=== PATIENT | male | born 1960 | race Caucasian/White ===

== ENCOUNTER 2017-01-20 02:40 | Emergency (ER) | payer BC ==
[2017-01-20] MEDS ORDERED: Sodium Chloride 0.9% 1,000 ML IV SCH (03:00)
--- NOTE | 2017-01-20 07:08 | ER ---
DATE SEEN: 01/20/2017 TIME SEEN: 3:00 a.m. REASON FOR VISIT: Syncope. HISTORY OF PRESENT ILLNESS: This is a 56-year-old izaguirre who was brought in by the , who woke up to use the bathroom, felt dizzy, and passed out. He hit his head. This has not happened before. He complains of mild chest pain, but otherwise feels fine and sore on the left side of the head, where he hit it. He was sweaty upon arrival of the EMS. No seizure reported. PAST MEDICAL HISTORY: Hypertension and hyperlipidemia. ALLERGIES: None. SOCIAL HISTORY: He had been drinking some tonight. PHYSICAL EXAMINATION: GENERAL: Nontoxic, afebrile, and normotensive. HEENT: Head: Normal size. There is tenderness on the left jain. Eyes: Pupils are equal and reactive to light. NECK: Soft. No JVD or carotid bruits. CHEST: Clear. CARDIOVASCULAR: Normal. EXTREMITIES: No edema. MENTAL STATUS: Alert. LABORATORY DATA: Normal labs including troponin. EKG: Normal sinus rhythm. CT of the head negative. IMPRESSION: Vasovagal syncope. PLAN: 1 L of normal saline. Fluids, rest. Follow up next week [email or web address] /[id number] QING/DARCY
--- NOTE | 2017-01-21 11:45 | CR ---
INDICATION: Dizzy. CHEST: PA and lateral views of the chest 01/20/2017. No comparisons. The aorta is calcified in the arch area. The heart is normal in size and shape. Moderate hypertrophic degenerative changes are noted in the lower thoracic spine. A mild dextroconvex scoliosis of the upper middle thoracic spine is noted. Overlying EKG leads are noted. Overlying snap is noted. An active infiltrate or effusion was not identified. A mild degree of lateral pleural thickening is noted, which likely represents fibrosis. IMPRESSION: No acute process. MTDD
== END 2017-01-20 04:30 | disposition home or self-care (01) ==
LOC: FB.ED 02:40
DX: R55 Syncope and collapse (principal)
CPT/HCPCS: 36415; 70450; 71020; 80048; 84484; 85025; 93005; 96360; 99285; J7040

== ENCOUNTER 2017-05-31 18:51 | Emergency (ER) | payer BC ==
[2017-05-31] MEDS ORDERED: hydrOXYzine HCl 50 MG/ML SDV IM ONE (19:40)
[2017-05-31] MEDS ORDERED: Ketorolac 60 MG/2 ML SDV IM ONE (19:40)
--- NOTE | 2017-05-31 19:42 | EDM.PDOC ---
ED HPI GENERAL MEDICAL PROBLEM - General Chief Complaint: Neck Problem Stated Complaint: HEADACHE Time Seen by Provider: 05/31/17 19:14 Source of Information: Reports: Patient, Family (brother) History Limitations: Reports: No Limitations - History of Present Illness INITIAL COMMENTS - FREE TEXT/NARRATIVE: 56 y.o.w.m came to the ed wih his brother due to sudden onset of bilateral post neck pain as he got up this morning. Pt had similar symptoms 6 years ago, when the symptoms spontaneously subsided. No F/V/N/V or any other acute medical issues. BP 136/95 RR 18 Temp 36.7 Pulse ox 99% RR 18 Onset Date: 05/31/17 Onset Time: 04:00 Duration: Hour(s): Location: Reports: Face, Neck Quality: Reports: Ache, Burning, Dull Severity: Moderate Improves with: Reports: Cold Therapy, Rest Worsens with: Reports: Movement Context: Reports: Other (came on spontaneously) Posterior neck & headache Pain Score (Numeric/FACES): 9 Frontal sinuses over eyes & nose Pain Score (Numeric/FACES): 10 - Related Data Allergies Allergy/AdvReac Type Severity Reaction Status Date / Time No Known Allergies Allergy Verified 05/31/17 19:19 Home Meds: Home Meds Pantoprazole [ProTONIX Granules] 40 mg PO DAILY 01/20/17 [History] amLODIPine Besylate/Benazepril [Amlodipine-Benazepril 5-10 MG] 1 tab PO DAILY [History] atorvaSTATin [Lipitor] 10 mg PO DAILY 01/20/17 [History] Acetaminophen/HYDROcodone [[place] 167.5-5 MG] 0.5 tab PO Q4H PRN #12 tablet 05/31 [Rx] Amoxicillin/Potassium Clav [Augmentin 875-125 Tablet] 1 each PO BID #20 tablet 05/31/17 [Rx] Amoxicillin/Potassium Clav [Augmentin 875-125 Tablet] 1 each PO BID #20 tablet 05/31/17 [Rx] Aspirin [Adult Low Dose Aspirin EC] 81 mg PO DAILY 05/31/17 [History] predniSONE 40 mg DAILY 05/31/17 [History] metroNIDAZOLE [Metronidazole] 500 mg TID 06/01/17 [History] Past Medical History HEENT History: Reports: Sinusitis Cardiovascular History: Reports: High Cholesterol, Hypertension Gastrointestinal History: Reports: GERD Musculoskeletal History: Reports: Arthritis, Neck Pain, Chronic, Other (See Below) Other Musculoskeletal History: Arthritis at the back. Neurological History: Reports: Migraines - Infectious Disease History Infectious Disease History: Reports: Chicken Pox - Past Surgical History HEENT Surgical History: Reports: Adenoidectomy, Tonsillectomy Cardiovascular Surgical History: Reports: None GI Surgical History: Reports: Colonoscopy, EGD Social & Family History - Family History Family Medical History: Noncontributory - Tobacco Use Smoking Status *Q: Former Smoker Years of Tobacco use: 2 Used Tobacco, but Quit: Yes Month/Year Tobacco Last Used: 1986 Second Hand Smoke Exposure: No - Caffeine Use Caffeine Use: Reports: None Other Caffeine Use: gatorade - Recreational Drug Use Recreational Drug Use: No ED ROS GENERAL - Review of Systems Review Of Systems: See Below Constitutional: Reports: No Symptoms HEENT: Reports: Sinus Problem Respiratory: Reports: No Symptoms Cardiovascular: Reports: No Symptoms Endocrine: Reports: No Symptoms GI/Abdominal: Reports: No Symptoms : Reports: No Symptoms Musculoskeletal: Reports: No Symptoms Skin: Reports: No Symptoms Neurological: Reports: No Symptoms Psychiatric: Reports: No Symptoms Hematologic/Lymphatic: Reports: No Symptoms Immunologic: Reports: No Symptoms ED EXAM, UPPER BACK/NECK PAIN - Physical Exam Exam: See Below Exam Limited By: No Limitations General Appearance: Alert, WD/WN, Mild Distress Eye Exam: Bilateral Eye: Normal Inspection Ears Exam: Normal External Exam, Normal Canal Nose Exam: Normal Inspection, Normal Mucousa, No Blood Throat/Mouth Exam: Normal Inspection, Normal Lips, Normal Oropharynx, Normal Voice, No Airway Compromise Head Exam: Atraumatic, Normocephalic Neck Exam: Full Range of Motion, Muscle Spasm (post bilateral), Tender Lateral, Other (kernick/brudzinki neg) Cardiovascular/Respiratory: Regular Rate, Rhythm, No M/R/G, Normal Peripheral Pulses, No JVD, Normal Breath Sounds, No Respiratory Distress GI/Abdominal: Normal Bowel Sounds, Soft, Non-Tender, No Organomegaly (Male) Exam: Deferred Rectal (Males) Exam: Deferred Back Exam: Normal Inspection, Full Range of Motion Extremities: Normal Inspection, Normal Range of Motion, Non-Tender, No Pedal Edema 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 Pt had similar symptoms 6 years ago, when the symptoms spontaneously subsided. No F/V/N/V or any other acute medical issues. BP 136/95 RR 18 Temp 36.7 Pulse ox 99% RR 18 PE: WNWD W M with neck pain and facial pain. No fever Imaging: Pansinusitis Impression: Chambers sinusitis, neck sprain Tx: Toradol, Vistaril, Rocephine, [place]'Reexam: Improved Plan: D/C with instructions Last Recorded V/S: Last Vital Signs Temp 36.3 C 05/31/17 19:14 Pulse 82 05/31/17 19:14 Resp 18 05/31/17 22:48 BP 151/98 H 05/31/17 22:48 Pulse Ox 100 05/31/17 22:48 - Orders/Labs/Meds Orders: Active Orders 24 hr Category Date Time Status Max Facial Sinus wo Cont [CT] Stat Exams 05/31/17 21:10 Taken Meds: Medications Discontinued Medications Generic Name Dose Route Start Last Admin Trade Name Isha PRN Reason Stop Dose Admin Hydrocodone Bitart/Acetaminophen 1 tab 05/31/17 22:01 05/31/17 22:15 [place] 325-10 Mg PO 05/31/17 22:02 1 tab ONETIME ONE Administration Amoxicillin/Clavulanate Potassium 1 tab 05/31/17 22:44 05/31/17 22:50 Augmentin 875 Mg/125 Mg PO 05/31/17 22:45 1 tab ONETIME ONE Administration Amoxicillin/Clavulanate Potassium Confirm 05/31/17 22:43 06/01/17 00:50 Augmentin 875 Mg/125 Mg Administered 05/31/17 22:44 Not Given Dose 1 tab .ROUTE .STK-MED ONE Ceftriaxone Sodium 1,000 mg 05/31/17 22:01 05/31/17 22:16 Rocephin IM 05/31/17 22:02 1,000 mg ONETIME ONE Administration Hydroxyzine HCl 50 mg 05/31/17 19:40 05/31/17 20:10 Vistaril IM 05/31/17 19:41 50 mg ONETIME ONE Administration Ketorolac Tromethamine 60 mg 05/31/17 19:40 05/31/17 20:08 Toradol IM 05/31/17 19:41 60 mg ONETIME ONE Administration Orphenadrine Citrate 60 mg 05/31/17 20:37 Norflex IM 05/31/17 20:38 ONETIME STA Departure - Departure Time of Disposition: 22:04 Disposition: Home, Self-Care 01 Condition: Good Clinical Impression: Acute neck sprain Qualifiers: Encounter type: initial encounter Qualified Code(s): S13.9XXA - Sprain of joints and ligaments of unspecified parts of neck, initial encounter Acute pansinusitis Qualifiers: Recurrence: not specified as recurrent Qualified Code(s): J01.40 - Acute pansinusitis, unspecified - Discharge Information Prescriptions: Acetaminophen/HYDROcodone [[place] 167.5-5 MG] 0.5 tab PO Q4H PRN #12 tablet PRN Reason: severe pain only Amoxicillin/Potassium Clav [Augmentin 875-125 Tablet] 1 each PO BID #20 tablet Amoxicillin/Potassium Clav [Augmentin 875-125 Tablet] 1 each PO BID #20 tablet Instructions: Acetaminophen; Hydrocodone tablets or capsules, Ceftriaxone injection, Sinusitis, Adult, [id number] Referrals: Tremaine Higgins MD [Primary Care Provider] - Forms: ED Department Discharge Additional Instructions: Please f/u with ENT, please take norco for severe pain, Motin for mod pain, Augmentin as recommended, please come back to the ED if your symptoms get worse acutely. Take the Augmentin tomorrow evening. Then start the 10 day course of Augmentin as prescribed. - My Orders Last 24 Hours: My Active Orders 05/31/17 21:10 Max Facial Sinus wo Cont [CT] Stat - Assessment/Plan Last 24 Hours: My Active Orders 05/31/17 21:10 Max Facial Sinus wo Cont [CT] Stat
[2017-05-31] MEDS ORDERED: cefTRIAXone 1,000 MG VIAL IM ONE (22:01)
[2017-05-31] MEDS ORDERED: Acetaminophen/HYDROcodone 325-10 MG Tab PO ONE (22:01)
[2017-05-31] MEDS ORDERED: Acetaminophen/HYDROcodone 325-5 MG Tab PO ONE (22:40)
[2017-05-31] MEDS ORDERED: Amoxicillin/Clavulanate K 875-125 MG Tab ONE (22:43)
[2017-05-31] MEDS ORDERED: Amoxicillin/Clavulanate K 875-125 MG Tab PO ONE (22:44)
== END 2017-05-31 22:55 | disposition home or self-care (01) ==
LOC: FB.ED 18:51
DX: S13.9XXA Sprain of joints and ligaments of unspecified parts of neck, initial encounter (principal); J01.40 Acute pansinusitis, unspecified; I10 Essential (primary) hypertension; E78.00 Pure hypercholesterolemia, unspecified; Z87.891 Personal history of nicotine dependence; Z79.899 Other long term (current) drug therapy; X58.XXXA Exposure to other specified factors, initial encounter
CPT/HCPCS: 70486; 96372; 99284; A9270; J0696; J1885; J3410; J2360

== ENCOUNTER 2017-06-11 11:58 | Emergency (ER) | payer BC ==
[2017-06-11] MEDS ORDERED: SUMAtriptan 6 MG/0.5 ML SDV SUBCUT ONE (12:32)
[2017-06-11] MEDS ORDERED: Sodium Chloride 0.9% 1,000 ML IV ONE ×2 (12:35→13:45)
[2017-06-11] MEDS ORDERED: Sodium Chloride 0.9% 10 ML Syringe FLUSH PRN (12:46)
--- NOTE | 2017-06-11 13:14 | EDM.PDOC ---
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, installing new tractor parts had sudden onset of pain across bridge of nose as well as across his forehead, b /l went to chiropractor who did manipulations for associated pain at back of neck, which got better chiropractor sent pt to PCP Dr Higgins d/t face pain, Toradol 60 mg IM and Zofran 4 mg IM given at 11:[address] Higgins with no improvement in pain, pt sent to ED for additional pain meds pt thinks that he has a sinus JADE, says that Dr Higgins did not think so pt seen with similar c/o on 05/31/17 and tx with 4 IM injections (Toradol 60 mg, Norflex 60 mg, hydroxyzine 50 mg, ceftriaxone 100 mg) and 2 PO meds (hc/apap 10/ 325 mg, Augmentin 875/125 mg), pain went away no problems until today gets a similar milder JADE q2-3m which will resolve on its own had a syncopal episode 5m ago and came to ED and dx as vasovagal, tx with 1 liter NS is feeling better here after Imitrex 6 mg SC and IVF labs suggest dehydration with inc'd alb and inc'd hgb (16.4 vs 14.1 from 5m ago) Head Pain Score (Numeric/FACES): 2 - Related Data Allergies Allergy/AdvReac Type Severity Reaction Status Date / Time No Known Allergies Allergy Verified 06/11/17 12:17 Home Meds: Home Meds Pantoprazole [ProTONIX Granules] 40 mg PO DAILY 01/20/17 [History] amLODIPine Besylate/Benazepril [Amlodipine-Benazepril 5-10 MG] 1 tab PO BID [History] atorvaSTATin [Lipitor] 10 mg PO DAILY 01/20/17 [History] Acetaminophen/HYDROcodone [[place] 167.5-5 MG] 0.5 tab PO Q4H PRN #12 tablet 05/31 [Rx] Amoxicillin/Potassium Clav [Augmentin 875-125 Tablet] 1 each PO BID #20 tablet 05/31/17 [Rx] Aspirin [Adult Low Dose Aspirin EC] 81 mg PO DAILY 05/31/17 [History] Loratadine 10 mg PO DAILY #30 tablet 06/11/17 [Rx] predniSONE 20 mg PO DAILY #7 tab 06/11/17 [Rx] Past Medical History HEENT History: Reports: Sinusitis Cardiovascular History: Reports: High Cholesterol, Hypertension Gastrointestinal History: Reports: GERD Musculoskeletal History: Reports: Arthritis, Neck Pain, Chronic, Other (See Below) Other Musculoskeletal History: Arthritis at the back. Neurological History: Reports: Migraines - Infectious Disease History Infectious Disease History: Reports: Chicken Pox - Past Surgical History HEENT Surgical History: Reports: Adenoidectomy, Tonsillectomy Cardiovascular Surgical History: Reports: None GI Surgical History: Reports: Colonoscopy, EGD Social & Family History - Family History Family Medical History: Noncontributory - Tobacco Use Smoking Status *Q: Former Smoker Years of Tobacco use: 2 Used Tobacco, but Quit: Yes Month/Year Tobacco Last Used: 1986 Second Hand Smoke Exposure: No - Caffeine Use Caffeine Use: Reports: None Other Caffeine Use: gatorade - Recreational Drug Use Recreational Drug Use: No ED ROS GENERAL - Review of Systems Review Of Systems: See Below Constitutional: Reports: No Symptoms HEENT: Reports: No Symptoms Respiratory: Reports: No Symptoms. Denies: Shortness of Breath Cardiovascular: Reports: No Symptoms. Denies: Chest Pain Endocrine: Reports: No Symptoms GI/Abdominal: Reports: Nausea. Denies: Vomiting : Reports: No Symptoms Musculoskeletal: Reports: No Symptoms Skin: Reports: No Symptoms Neurological: Reports: Headache Psychiatric: Reports: No Symptoms Hematologic/Lymphatic: Reports: No Symptoms Immunologic: Reports: No Symptoms - Physical Exam Exam: See Below Exam Limited By: No Limitations General Appearance: Alert, WD/WN, Mild Distress Ears: Normal External Exam, Normal Canal, Hearing Grossly Normal, Normal TMs Nose: Normal Inspection, Normal Mucosa, No Blood, Other (no swell, no polyp) Throat/Mouth: Normal Inspection, Normal Lips, Normal Teeth, Normal Gums, Normal Oropharynx, Normal Voice, No Airway Compromise Head Exam: Atraumatic, Normocephalic, Other (no tender at sinus except possibly slight tender at bridge of nose) Neck: Normal Inspection, Supple, Non-Tender, Other (no spasm, did not want to turn head to prevent inc pain) Respiratory/Chest: No Respiratory Distress, Lungs Clear, Normal Breath Sounds, No Accessory Muscle Use, Chest Non-Tender Cardiovascular: Normal Peripheral Pulses, Regular Rate, Rhythm, No Edema, No Gallop, No JVD, No Murmur, No Rub GI/Abdominal: Normal Bowel Sounds, Soft, Non-Tender, No Organomegaly, No Distention, No Mass Neuro Exam (Abbreviated): Alert, Oriented, CN II-XII Intact, Normal Cognition, No Motor/Sensory Deficits Back Exam: Normal Inspection Extremities: Normal Inspection, Normal Range of Motion, Non-Tender, No Pedal Edema Psychiatric: Normal Affect, Normal Mood Skin Exam: Warm, Dry, Intact, Normal Color, No Rash Course - Vital Signs Last Recorded V/S: Last Vital Signs Temp 36.3 C 06/11/17 11:58 Pulse 87 06/11/17 11:58 Resp 18 06/11/17 11:58 BP 146/84 H 06/11/17 11:58 Pulse Ox 100 06/11/17 11:58 Orthostatic Blood Pressure [] 148/91 Orthostatic Blood Pressure [] 147/88 Orthostatic Blood Pressure [] 136/83 - Orders/Labs/Meds Orders: Active Orders 24 hr Category Date Time Status Orthostatic Vital Signs [RC] ASDIRECTED Care 06/11/17 13:11 Active Sodium Chloride 0.9% [Saline Flush] Med 06/11/17 12:46 Active 10 ml FLUSH ASDIRECTED PRN Saline Lock Insert [OM.PC] Routine Oth 06/11/17 12:46 Ordered Medication Orders Sodium Chloride (Saline Flush) 10 ml FLUSH ASDIRECTED PRN PRN Reason: Keep Vein Open Last Admin: 06/11/17 12:48 Dose: 10 ml Labs: Laboratory Tests 06/11/17 06/11/17 06/11/17 Range/Units 12:45 12:45 12:45 WBC 9.6 (4.5-12.0) X10-3/uL RBC 5.64 (4.30-5.75) x10(6)uL Hgb 16.4 H (11.5-15.5) g/dL Hct 48.0 (30.0-51.3) % MCV 85.2 (80-96) fL MCH 29.2 (27.7-33.6) pg MCHC 34.2 (32.2-35.4) g/dL RDW 12.9 (11.5-15.5) % Plt Count 304 (125-369) X10(3)uL MPV 8.1 (7.4-10.4) fL Neut % (Auto) 77.1 (46-82) % Lymph % (Auto) 14.5 (13-37) % [place] % (Auto) 7.0 (4-12) % Eos % (Auto) 1 (1.0-5.0) % Baso % (Auto) 0 (0-2) % Neut # (Auto) 7.4 (1.6-8.3) # Lymph # (Auto) 1.4 (0.6-5.0) # [place] # (Auto) 0.7 (0.0-1.3) # Eos # (Auto) 0.1 (0.0-0.8) # Baso # (Auto) 0.0 (0.0-0.2) # Sodium 141 (135-145) mmol/L Potassium 3.7 (3.5-5.3) mmol/L Chloride 102 (100-110) mmol/L Carbon Dioxide 25 (21-32) mmol/L BUN 18 (7-18) mg/dL Creatinine 1.0 (0.70-1.30) mg/dL Est Cr Clr Drug Dosing TNP Estimated GFR (MDRD) > 60 (>60) BUN/Creatinine Ratio 18.0 (9-20) Glucose 108 (80-116) mg/dL Calcium 9.8 (8.6-10.2) mg/dL Total Bilirubin 0.8 (0.1-1.3) mg/dL AST 22 (5-25) IU/L ALT 44 H (12-36) U/L Alkaline Phosphatase 45 L (56-112) IU/L Troponin I (<0.017-0.056) ng/mL C-Reactive Protein < 0.2 L (0.5-0.9) mg/dL Total Protein 8.3 H (6.0-8.0) g/dL Albumin 4.3 (3.5-5.2) g/dL Globulin 4.0 g/dL Albumin/Globulin Ratio 1.1 06/11/17 Range/Units 12:45 WBC (4.5-12.0) X10-3/uL RBC (4.30-5.75) x10(6)uL Hgb (11.5-15.5) g/dL Hct (30.0-51.3) % MCV (80-96) fL MCH (27.7-33.6) pg MCHC (32.2-35.4) g/dL RDW (11.5-15.5) % Plt Count (125-369) X10(3)uL MPV (7.4-10.4) fL Neut % (Auto) (46-82) % Lymph % (Auto) (13-37) % [place] % (Auto) (4-12) % Eos % (Auto) (1.0-5.0) % Baso % (Auto) (0-2) % Neut # (Auto) (1.6-8.3) # Lymph # (Auto) (0.6-5.0) # [place] # (Auto) (0.0-1.3) # Eos # (Auto) (0.0-0.8) # Baso # (Auto) (0.0-0.2) # Sodium (135-145) mmol/L Potassium (3.5-5.3) mmol/L Chloride (100-110) mmol/L Carbon Dioxide (21-32) mmol/L BUN (7-18) mg/dL Creatinine (0.70-1.30) mg/dL Est Cr Clr Drug Dosing Estimated GFR (MDRD) (>60) BUN/Creatinine Ratio (9-20) Glucose (80-116) mg/dL Calcium (8.6-10.2) mg/dL Total Bilirubin (0.1-1.3) mg/dL AST (5-25) IU/L ALT (12-36) U/L Alkaline Phosphatase (56-112) IU/L Troponin I < 0.017 L (<0.017-0.056) ng/mL C-Reactive Protein (0.5-0.9) mg/dL Total Protein (6.0-8.0) g/dL Albumin (3.5-5.2) g/dL Globulin g/dL Albumin/Globulin Ratio Meds: Medications Generic Name Dose Route Start Last Admin Trade Name Freq PRN Reason Stop Dose Admin Sodium Chloride 10 ml 06/11/17 12:46 06/11/17 12:48 Saline Flush FLUSH 10 ml ASDIRECTED PRN Administration Keep Vein Open Discontinued Medications Generic Name Dose Route Start Last Admin Trade Name Freq PRN Reason Stop Dose Admin Hydrocodone Bitart/Acetaminophen 1 tab 06/11/17 14:31 06/11/17 14:37 [place] 325-10 Mg PO 06/11/17 14:32 1 tab ONETIME ONE Administration Hydroxyzine HCl 50 mg 06/11/17 14:30 06/11/17 14:38 Vistaril IM 06/11/17 14:31 50 mg ONETIME ONE Administration Sodium Chloride 1,000 mls @ 999 mls/hr 06/11/17 12:35 06/11/17 12:48 Normal Saline IV 06/11/17 13:35 999 mls/hr .BOLUS ONE Administration Sodium Chloride 1,000 mls @ 999 mls/hr 06/11/17 13:45 06/11/17 13:49 Normal Saline IV 06/11/17 14:45 999 mls/hr .BOLUS ONE Administration Loratadine 10 mg 06/11/17 14:41 06/11/17 14:47 Claritin PO 06/11/17 14:42 10 mg ONETIME ONE Administration Methylprednisolone Sodium Succinate 125 mg 06/11/17 14:41 06/11/17 14:47 Solu-Medrol IVPUSH 06/11/17 14:42 125 mg ONETIME ONE Administration Morphine Sulfate 4 mg 06/11/17 14:20 06/11/17 14:42 Morphine IVPUSH 06/11/17 14:21 Not Given ONETIME ONE Sumatriptan Succinate 6 mg 06/11/17 12:32 06/11/17 12:46 Imitrex SUBCUT 06/11/17 12:33 6 mg ONETIME ONE Administration - Re-Assessments/Exams Free Text/Narrative Re-Assessment/Exam: 06/11/17 14:37 d/w PCP Dr Higgins who reports that pt has chronic neck pain not orthostatic declined MS, had cloudy thinking in past did want same meds he had been given 10d ago and accordingly being given [place] 10/325 mg PO and hydroxyzone 50 mg IM pt reports he was better altho still had pain on d/c from ED at 11:30 PM 10d ago , was up all night that night d/t pain, however pain gone in the AM and has not come back until today did take a 10d course of Augmentin and was given another 10d course by Dr Higgins today 06/11/17 15:20 pt still with JADE altho better after Solu-Medrol 125 mg IV, loratadine 10 mg PO pt agrees to f/u with Dr Higgins DDX includes migraine and cluster JADE altho it is atypical for both of these (b/l , not unilateral), most c/w a severe sinus JADE Departure - Departure Time of Disposition: 15:22 Disposition: Home, Self-Care 01 Condition: Good Clinical Impression: Sinus headache, Sinus congestion, Dehydration, Elevated hemoglobin, Elevated total protein - Discharge Information Prescriptions: Loratadine 10 mg PO DAILY #30 tablet predniSONE 20 mg PO DAILY #7 tab Instructions: Sinus Headache Referrals: Tremaine Higgins MD [Primary Care Provider] - Forms: ED Department Discharge Additional Instructions: To decrease sinus swelling, take prednisone 20 mg 1 tab daily for 7 days. To decrease sinus swelling, take loratadine 10 mg 1 tab daily for 30 days. To break pain cycle, take ibuprofen 200 mg 3 tabs with meals and bedtime today and tomorrow. For pain, as needed, take a hydrocodone every 6 hours as needed. For pain, use ice to forehead for 10 minutes every 2 hours today and tomorrow as needed. Get adequate rest. Eat 3 meals a day. See Dr Higgins in 2-3 days. Return to ED if you are feeling worse. - My Orders Last 24 Hours: My Active Orders 06/11/17 12:46 Sodium Chloride 0.9% [Saline Flush] 10 ml FLUSH ASDIRECTED PRN Saline Lock Insert [OM.PC] Routine 06/11/17 13:11 Orthostatic Vital Signs [RC] ASDIRECTED - Assessment/Plan Last 24 Hours: My Active Orders 06/11/17 12:46 Sodium Chloride 0.9% [Saline Flush] 10 ml FLUSH ASDIRECTED PRN Saline Lock Insert [OM.PC] Routine 06/11/17 13:11 Orthostatic Vital Signs [RC] ASDIRECTED
[2017-06-11] MEDS ORDERED: Morphine 4 MG/ML Syringe IVPUSH ONE (14:20)
[2017-06-11] MEDS ORDERED: hydrOXYzine HCl 50 MG/ML SDV IM ONE (14:30)
[2017-06-11] MEDS ORDERED: Acetaminophen/HYDROcodone 325-10 MG Tab PO ONE (14:31)
[2017-06-11] MEDS ORDERED: Loratadine 10 MG Tab PO ONE (14:41)
[2017-06-11] MEDS ORDERED: methylPREDNISolone Sodium Succinate 125 MG/2 ML SDV IVPUSH ONE (14:41)
== END 2017-06-11 16:05 | disposition home or self-care (01) ==
LOC: FB.ED 11:58
DX: R51 Headache (principal); R09.81 Nasal congestion; R79.89 Other specified abnormal findings of blood chemistry; E78.00 Pure hypercholesterolemia, unspecified; I10 Essential (primary) hypertension; E86.0 Dehydration; Z79.899 Other long term (current) drug therapy; Z87.891 Personal history of nicotine dependence; Z79.82 Long term (current) use of aspirin
CPT/HCPCS: 36415; 80053; 84484; 85025; 86140; 96361; 96372; 96374; 99284; A9270; J2930; J3030; J3410; J7040; J7050

== ENCOUNTER 2017-06-14 07:35 | Emergency (ER) | payer BC ==
[2017-06-14] MEDS ORDERED: Ketorolac 60 MG/2 ML SDV IM ONE (08:02)
[2017-06-14] MEDS ORDERED: Cyclobenzaprine 10 MG Tab PO ONE (08:03)
--- NOTE | 2017-06-14 08:09 | EDM.PDOC ---
ED HPI GENERAL MEDICAL PROBLEM - General Stated Complaint: HEAD, BACK AND NECK PAIN Time Seen by Provider: 06/14/17 07:45 Source of Information: Reports: Patient, Family History Limitations: Reports: No Limitations - History of Present Illness INITIAL COMMENTS - FREE TEXT/NARRATIVE: c/o low back and neck pain and spasm x 12h inc'd pain last night, awake much of the night, heat helped a little, low back tight, then lower posterior neck b/l, pain into ears b/l took HC/APAP during night without benefit saw Dr Higgins 2d ago who tx'ed his pansinusitis (documented on CT) with a different antbx, prednisone and loratadine pt has less pain across nose and forehead back more of a problem now no n/v, no f/c/d - Related Data Allergies Allergy/AdvReac Type Severity Reaction Status Date / Time No Known Allergies Allergy Verified 06/11/17 12:17 Home Meds: Home Meds Pantoprazole [ProTONIX Granules] 40 mg PO DAILY 01/20/17 [History] amLODIPine Besylate/Benazepril [Amlodipine-Benazepril 5-10 MG] 1 tab PO BID [History] atorvaSTATin [Lipitor] 10 mg PO DAILY 01/20/17 [History] Acetaminophen/HYDROcodone [[place] 167.5-5 MG] 0.5 tab PO Q4H PRN #12 tablet 05/31 [Rx] Amoxicillin/Potassium Clav [Augmentin 875-125 Tablet] 1 each PO BID #20 tablet 05/31/17 [Rx] Aspirin [Adult Low Dose Aspirin EC] 81 mg PO DAILY 05/31/17 [History] Loratadine 10 mg PO DAILY #30 tablet 06/11/17 [Rx] predniSONE 20 mg PO DAILY #7 tab 06/11/17 [Rx] Cyclobenzaprine HCl 10 mg PO TID #21 tablet 06/14/17 [Rx] Past Medical History HEENT History: Reports: Sinusitis Cardiovascular History: Reports: High Cholesterol, Hypertension Gastrointestinal History: Reports: GERD Musculoskeletal History: Reports: Arthritis, Neck Pain, Chronic, Other (See Below) Other Musculoskeletal History: Arthritis at the back. Neurological History: Reports: Migraines - Infectious Disease History Infectious Disease History: Reports: Chicken Pox - Past Surgical History HEENT Surgical History: Reports: Adenoidectomy, Tonsillectomy Cardiovascular Surgical History: Reports: None GI Surgical History: Reports: Colonoscopy, EGD Social & Family History - Family History Family Medical History: Noncontributory - Tobacco Use Smoking Status *Q: Former Smoker Years of Tobacco use: 2 Used Tobacco, but Quit: Yes Month/Year Tobacco Last Used: 1986 Second Hand Smoke Exposure: No - Caffeine Use Caffeine Use: Reports: None Other Caffeine Use: gatorade - Recreational Drug Use Recreational Drug Use: No ED ROS GENERAL - Review of Systems Review Of Systems: See Below Constitutional: Reports: No Symptoms HEENT: Reports: No Symptoms Respiratory: Reports: No Symptoms Cardiovascular: Reports: No Symptoms Endocrine: Reports: No Symptoms GI/Abdominal: Reports: No Symptoms : Reports: No Symptoms Musculoskeletal: Reports: Back Pain Skin: Reports: No Symptoms Neurological: Reports: No Symptoms Psychiatric: Reports: No Symptoms Hematologic/Lymphatic: Reports: No Symptoms Immunologic: Reports: No Symptoms ED EXAM, GENERAL - Physical Exam Exam: See Below Exam Limited By: No Limitations General Appearance: Alert, WD/WN, No Apparent Distress Nose: Normal Inspection, Normal Mucosa, No Blood Throat/Mouth: Normal Inspection, Normal Lips, Normal Teeth, Normal Gums, Normal Oropharynx, Normal Voice, No Airway Compromise Head: Atraumatic, Normocephalic Neck: Other (slight tender at base b/l, not in midline) Respiratory/Chest: No Respiratory Distress, Lungs Clear, Normal Breath Sounds, No Accessory Muscle Use, Chest Non-Tender Cardiovascular: Regular Rate, Rhythm, No Edema, No Murmur, No Rub GI/Abdominal: Soft, Non-Tender Back Exam: Other (slight tender over iliac crest) Extremities: Normal Inspection, Normal Range of Motion, Non-Tender, No Pedal Edema Neurological: Alert, Oriented, CN II-XII Intact, Normal Cognition, No Motor/ Sensory Deficits Psychiatric: Anxious Skin Exam: Warm Lymphatic: No Adenopathy Course - Orders/Labs/Meds Meds: Medications Discontinued Medications Generic Name Dose Route Start Last Admin Trade Name Freq PRN Reason Stop Dose Admin Cyclobenzaprine HCl 10 mg 06/14/17 08:03 06/14/17 08:15 Flexeril PO 06/14/17 08:04 10 mg ONETIME ONE Administration Ketorolac Tromethamine 60 mg 06/14/17 08:02 06/14/17 08:16 Toradol IM 06/14/17 08:03 60 mg ONETIME ONE Administration Lorazepam 1 mg 06/14/17 08:39 06/14/17 08:53 Ativan IM 06/14/17 08:40 1 mg ONETIME ONE Administration - Re-Assessments/Exams Free Text/Narrative Re-Assessment/Exam: 06/14/17 09:25 feeling a little better pt commented he his 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 is feeling a little frustrated with pt's health situation pt and agreed to f/u with Dr Higgins uses of anti-inflammatories discussed 06/14/17 10:41 d/w Dr Higgins who is seeing pts in hospital, he requested pt to call him this weekend during the day at the nursing station if he has additional questions pt walking in [place], says he is feeling a little better Departure - Departure Time of Disposition: 10:42 Disposition: Home, Self-Care 01 Condition: Good Clinical Impression: Spasm of muscle of lower back, Neck muscle spasm - Discharge Information Prescriptions: Cyclobenzaprine HCl 10 mg PO TID #21 tablet Instructions: Muscle Cramps and Spasms Referrals: Tremaine Higgins MD [Primary Care Provider] - Care Plan Goals: Continue current meds. For pain and inflammation, take ibuprofen 200 mg 3 tabs 4 times a day for 7 days. For pain and inflammation, take acetaminophen 325 mg 2 tabs 4 times a day for 7 days. For pain, may also take hydrocodone 5/325 mg 1 tab every 6 hours as needed. In 24 hours, the maximum number of acetaminophen 325 mg is 12 tabs, regardless of whether it is by itself or in combination with hydrocodone. Use heat for 10 minutes 4 times a day for 2 days. May follow heat with gentle massage for 5 minutes as needed. Sleep on a firm mattress. See ENT in 11 days as scheduled. See Dr Higgins in 3-4 days as needed. Call Dr Higgins this weekend at the hospital nursing station between 7 AM and 5 PM if you have additional questions.
[2017-06-14] MEDS ORDERED: LORazepam 2 MG/ML SDV IM ONE (08:39)
== END 2017-06-14 11:15 | disposition home or self-care (01) ==
LOC: FB.ED 07:35
DX: M62.830 Muscle spasm of back (principal); M54.2 Cervicalgia; E78.00 Pure hypercholesterolemia, unspecified; I10 Essential (primary) hypertension; Z79.899 Other long term (current) drug therapy; Z79.82 Long term (current) use of aspirin; Z87.891 Personal history of nicotine dependence
CPT/HCPCS: 96372; 99282; A9270-GY; J1885; J2060

== ENCOUNTER 2020-04-18 07:15 | Day surgery (SDC) | payer BC ==
[~2020-04-18 07:15] MED LIST: Lactated Ringers 1,000 ML IV SCH; Sodium Chloride 0.9% 10 ML Syringe FLUSH PRN
[2020-04-18] MEDS ORDERED: Propofol 200 MG/20 ML SDV IV ONE (07:16)
--- NOTE | 2020-04-18 09:20 | PCM.OPNOTE ---
- General Post-Op/Procedure Note Date of Surgery/Procedure: 04/18/20 Operative Procedure(s): c scope Findings: scattered diverticulosis Pre Op Diagnosis: hx of recurrent diverticulitis Post-Op Diagnosis: divertiuculosis of colon Anesthesia Technique: MUSA Primary Surgeon: Neymar Manriquez Anesthesia Provider: Emeka Bello Pathology: none Complications: None Condition: Good Free Text/Narrative:: see dictation
--- NOTE | 2020-04-19 09:00 | OR ---
DATE OF OPERATION: 04/18/2020 SURGEON: Neymar Manriquez MD PROCEDURE PERFORMED: Colonoscopy. PREOPERATIVE DIAGNOSIS: History of recurrent diverticulitis. POSTOPERATIVE DIAGNOSIS: Diverticulosis scattered. INDICATIONS FOR PROCEDURE: This is a 59-year-old white male who apparently has been having frequent bouts of diverticulitis, which occur roughly every 8 to 10 weeks. They respond nicely to antibiotics. However, he was offered and accepted a colonoscopy due to the increased frequency of this condition. DESCRIPTION OF OPERATION: After an excellent IV sedation was administered, digital rectal exam was performed. No marked abnormality was noted. Flexible colonoscope was inserted and advanced without difficulty to the cecum. After identifying the cecum by its usual anatomic markings, the scope was slowly withdrawn, and the following findings were noted. Ascending colon, single diverticulum mid ascending colon. Transverse colon was unremarkable. Descending colon was unremarkable. Sigmoid had scattered diverticulosis of really no marked size and were essentially unremarkable. Rectum and anus, unremarkable. The patient tolerated the procedure well, was taken to recovery room in good condition. RECOMMENDATION: Repeat colonoscopy in 10 years. /[id number] /MODL
== END 2020-04-18 10:40 | disposition home or self-care (01) ==
LOC: FB.SDS 07:15
PROVIDERS: ATTEND Surgery
DX: K57.30 Diverticulosis of large intestine without perforation or abscess without bleeding (principal); I10 Essential (primary) hypertension; E78.00 Pure hypercholesterolemia, unspecified; M51.36 Other intervertebral disc degeneration, lumbar region; N40.0 Benign prostatic hyperplasia without lower urinary tract symptoms; Z86.69 Personal history of other diseases of the nervous system and sense organs; Z79.82 Long term (current) use of aspirin; Z79.899 Other long term (current) drug therapy; Z98.890 Other specified postprocedural states
CPT/HCPCS: 00812; 45378; J2704; J7120

== ENCOUNTER 2020-11-21 16:44 | Inpatient (IN) | payer BC ==
[2020-11-21] MEDS ORDERED: HYDROmorphone 2 MG/ML SDV IVPUSH PRN (17:35)
[2020-11-21] MEDS ORDERED: Sodium Chloride 0.9% 10 ML Syringe FLUSH PRN (17:35)
[2020-11-21] MEDS ORDERED: Ketorolac 30 MG/ML SDV IVPUSH PRN (17:35)
[2020-11-21] MEDS ORDERED: metroNIDAZOLE/Normal Saline 500 MG in Premix Bag 1 BAG IV SCH (17:45)
--- NOTE | 2020-11-21 17:50 | PCM.HP.2 ---
H&P History of Present Illness - General Date of Service: 11/21/20 Admit Problem/Dx: Admission Diagnosis/Problem Admission Diagnosis/Problem Diverticulitis Source of Information: Patient, Old Records, Provider History Limitations: Reports: No Limitations - History of Present Illness Initial Comments - Free Text/Narative: Ganga presented to [facility] for 4 days of worsening abdominal pain, nausea, low grade fever, fatigue, weakness and diarrhea. He had been treated for diverticulitis a month ago with Augmentin for 10 days then he got worse again and called his PCP and started another round of Augmentin on 11/08, finished course on 11/17. He does know how many diarrhea stools he has had. History of C. difficile in past after treatment for diverticulitis. He had CBC, BMP and C. Diff test done in clinic. He had CT abdomen/pelvis done which showed diverticulitis, no abscess or perforation. Also thickened bladder wall. His WBC was 18.2, Hgb 15.2, Plt 229. Glu 88, BUN 13, Cr 1.01, Na 139, K 4.6, Cl 102, CO2 25, Ca 10.2. C. Difficile pending, has not reached [facility] in [place] yet but they will notify our lab once they get results. He states his urine has been dark, some difficulty urinating. Denies frequency, or hematuria. Lower Abdomen Pain Score (Numeric/FACES): 4 - Related Data Allergies/Adverse Reactions: Allergies Allergy/AdvReac Type Severity Reaction Status Date / Time No Known Allergies Allergy Verified 11/21/20 16:48 Home Medications: Home Meds amLODIPine Besylate/Benazepril [Amlodipine-Benazepril 5-10 MG] 1 tab PO DAILY 01/20/17 [History] atorvaSTATin [Lipitor] 10 mg PO DAILY 01/20/17 [History] Aspirin [Adult Low Dose Aspirin EC] 81 mg PO DAILY 05/31/17 [History] Pantoprazole [ProTONIX] 40 mg PO DAILY 04/14/20 [History] Past Medical History HEENT History: Reports: Sinusitis Cardiovascular History: Reports: High Cholesterol, Hypertension, Other (See Below) Other Cardiovascular History: CAROTID ARTERY DISEASE Respiratory History: Reports: None Gastrointestinal History: Reports: GERD, Other (See Below) Other Gastrointestinal History: HEMORRHOIDS Genitourinary History: Reports: BPH Musculoskeletal History: Reports: Arthritis, Neck Pain, Chronic, Other (See Below) Other Musculoskeletal History: LUMBAGO, THORACIC BACK PAIN, LUMBAR DDD AND DISC HERNIATION Neurological History: Reports: Migraines, Other (See Below) Other Neuro History: SUBARACHNOID HEMORRHAGE Psychiatric History: Reports: None Endocrine/Metabolic History: Reports: Other (See Below) Other Endocrine/Metabolic History: HYPERHIDROSIS Oncologic (Cancer) History: Reports: None Dermatologic History: Reports: None - Infectious Disease History Infectious Disease History: Reports: Chicken Pox, Measles, Mumps - Past Surgical History HEENT Surgical History: Reports: Adenoidectomy, Naso-Sinus Surgery, Oral Surgery, Tonsillectomy Cardiovascular Surgical History: Reports: None Respiratory Surgical History: Reports: None GI Surgical History: Reports: Colonoscopy, EGD Female Surgical History: Male Surgical History: Reports: None Endocrine Surgical History: Reports: None Neurological Surgical History: Reports: None Musculoskeletal Surgical History: Reports: None Dermatological Surgical History: Reports: None Social & Family History - Family History Family Medical History: Unobtainable - Caffeine Use Caffeine Use: Reports: None Other Caffeine Use: gatorade H&P Review of Systems - Review of Systems: Review Of Systems: Comprehensive ROS is negative, except as noted in HPI. Exam - Exam Exam: See Below - Vital Signs Vital Signs: Last Vital Signs Temp 99.8 F 11/21/20 17:26 Pulse 95 11/21/20 17:26 Resp 16 11/21/20 17:26 BP 133/80 11/21/20 17:26 Pulse Ox 100 11/21/20 17:26 Weight: 214 lb 12.8 oz - Exam General: Alert, Oriented, Cooperative, Mild Distress HEENT: PERRLA, EOMI, Hearing Intact, Mucosa Moist & [place] Neck: Trachea Midline Lungs: Clear to Auscultation, Normal Respiratory Effort Cardiovascular: Regular Rate, Regular Rhythm GI/Abdominal Exam: Soft, No Distention, Guarding, Tender (LLQ), Abnormal Bowel Sounds (hyperactive x 4). No: Rigid, Rebound - Patient Data Lab Results Last 24 hrs: WBC 18.2, Hgb 15.2, Plt 229. Glu 88, BUN 13, Cr 1.01, Na 139, K 4.6, Cl 102, CO2 25, Ca 10.2. C. Difficile pending Imaging Impressions Last 24 hrs: CT abdomen/pelvis done which showed diverticulitis, no abscess or perforation. Also thickened bladder wall. Sepsis Event Note - Focused Exam Vital Signs: Vital Signs Temp Pulse Resp BP Pulse Ox 11/21/20 17:26 99.8 F 95 16 133/80 100 *Q Meaningful Use (ADM) - VTE Risk Assess *Q Each Risk Factor Represents 1 Point: None, Obesity ( BMI > 25 kg/m2) Total Score 1 Point Risk Factors: 1 Each Risk Factor Represents 2 Points: Age 60 - 74 Years Total Score 2 Point Risk Factors: 2 Each Risk Factor Represents 3 Points: None Total Score 3 Point Risk Factors: 0 Each Risk Factor Represents 5 Points: None Total Score 5 Point Risk Factors: 0 Venous Thromboembolism Risk Factor Score *Q: 3 - Problem List (1) Diverticulosis large intestine w/o perforation or abscess w/o bleeding SNOMED Code(s): 210702789 ICD Code: K57.30 - DVRTCLOS OF LG INT W/O PERFORATION OR ABSCESS W/O BLEEDING Status: Acute Current Visit: No Problem Details: scattered (2) Diarrhea SNOMED Code(s): 98150442 ICD Code: R19.7 - DIARRHEA, UNSPECIFIED Status: Acute Current Visit: Yes (3) Leukocytosis SNOMED Code(s): 418920967, 487382230 ICD Code: D72.829 - ELEVATED WHITE BLOOD CELL COUNT, UNSPECIFIED Status: Acute Current Visit: Yes (4) Dehydration SNOMED Code(s): 72896357 ICD Code: E86.0 - DEHYDRATION Status: Acute Current Visit: No (5) Hypertension SNOMED Code(s): 88603334 ICD Code: I10 - ESSENTIAL (PRIMARY) HYPERTENSION Status: Chronic Current Visit: Yes Qualifiers: Hypertension type: primary hypertension Qualified Code(s): I10 - Essential (primary) hypertension (6) Hyperlipidemia SNOMED Code(s): 09998073 ICD Code: E78.5 - HYPERLIPIDEMIA, UNSPECIFIED Status: Chronic Current Visit: Yes (7) External hemorrhoids SNOMED Code(s): 49128357 ICD Code: K64.4 - RESIDUAL HEMORRHOIDAL SKIN TAGS Status: Chronic Current Visit: Yes (8) CAD (coronary artery disease) SNOMED Code(s): 53111315 ICD Code: I25.10 - ATHSCL HEART DISEASE OF [place] CORONARY ARTERY W/O ANG PCTRS Status: Chronic Current Visit: Yes (9) Migraine with aura SNOMED Code(s): 7928329 ICD Code: G43.109 - MIGRAINE WITH AURA, NOT INTRACTABLE, W/O STATUS MIGRAINOSUS Status: Chronic Current Visit: Yes (10) Esophageal reflux SNOMED Code(s): 887136666 ICD Code: K21.9 - GASTRO-ESOPHAGEAL REFLUX DISEASE WITHOUT ESOPHAGITIS Status: Chronic Current Visit: Yes (11) History of Clostridioides difficile infection SNOMED Code(s): 521312818629444, 421180735794545 ICD Code: Z86.19 - PERSONAL HISTORY OF OTHER INFECTIOUS AND PARASITIC DISEASES Status: Resolved Current Visit: Yes Problem List Initiated/Reviewed/Updated: Yes Orders Last 24hrs: Active Orders 24 hr Category Date Time Status Patient Status [ADT] Routine ADT 11/21/20 17:35 Active Ambulate [RC] ASDIRECTED Care 11/21/20 17:35 Active Intake and Output [RC] QSHIFT Care 11/21/20 17:36 Active Nurse Communication: Isolation [RC] ASDIRECTED Care 11/21/20 17:38 Active Oxygen Therapy [RC] PRN Care 11/21/20 17:35 Active VTE/DVT Education [RC] Per Unit Routine Care 11/21/20 17:35 Active Vital Signs [RC] Q4H Care 11/21/20 17:35 Active Clear Liquid Diet [DIET] Diet 11/21/20 Dinner Active BASIC METABOLIC PANEL,BMP [CHEM] Routine Lab 11/22/20 06:00 Ordered CBC WITH AUTO DIFF [HEME] Routine Lab 11/22/20 06:00 Ordered CULTURE BLOOD [BC] Urgent Lab 11/21/20 17:38 Ordered CULTURE BLOOD [BC] Urgent Lab 11/21/20 17:38 Ordered LACTIC ACID [CHEM] Routine Lab 11/21/20 17:35 Ordered UA W/MICROSCOPIC [URIN] Stat Lab 11/21/20 17:35 Ordered Acetaminophen [TylenoL] Med 11/21/20 17:35 Active 650 mg PO Q4H PRN Ciprofloxacin in D5W [Cipro in D5W 400 MG/200 ML] 400 Med 11/21/20 17:45 O rdered mg Premix Bag 1 bag IV Q12HR Enoxaparin [Lovenox] Med 11/21/20 17:45 Ordered 40 mg SUBCUT Q24H HYDROmorphone [Dilaudid] Med 11/21/20 17:35 Ordered 0.5 mg IVPUSH Q2H PRN Ketorolac [Toradol] Med 11/21/20 17:35 Ordered 30 mg IVPUSH Q6H PRN Ondansetron [Zofran ODT] Med 11/21/20 17:35 Active 4 mg PO Q4H PRN Pantoprazole [ProTONIX] Med 11/22/20 09:00 Ordered 40 mg PO DAILY Sodium Chloride 0.9% [Saline Flush] Med 11/21/20 17:35 Active 10 ml FLUSH ASDIRECTED PRN amLODIPine Besylate/Benazepril [Amlodipine-Benazepril 5 Med 11/22/20 09:00 Ordered -10 MG] 1 tab PO DAILY atorvaSTATin [Lipitor] Med 11/22/20 09:00 Active 10 mg PO DAILY metroNIDAZOLE/Normal Saline [Flagyl in NS 500 MG/100 ML Med 11/21/20 17:45 Ordered ] 500 mg Premix Bag 1 bag IV Q6H Blood Culture x2 Reflex Set [OM.PC] Urgent Oth 11/21/20 17:35 Ordered Isolation [COMM] Routine Oth 11/21/20 17:35 Ordered Saline Lock Insert [OM.PC] Routine Oth 11/21/20 17:35 Ordered Resuscitation Status Routine Resus Stat 11/21/20 17:35 Ordered Medication Orders Acetaminophen (Acetaminophen 325 Mg Tab) 650 mg PO Q4H PRN PRN Reason: Pain (Mild 1-3)/fever Atorvastatin Calcium (Atorvastatin 10 Mg Tab) 10 mg PO DAILY HIEN Enoxaparin Sodium (Enoxaparin 40 Mg/0.4 Ml Syringe) 40 mg SUBCUT Q24H HIEN Hydromorphone HCl (Hydromorphone 2 Mg/Ml Sdv) 0.5 mg IVPUSH Q2H PRN PRN Reason: Pain (severe 7-10) Ciprofloxacin/Dextrose 400 mg/ (Premix) 200 mls @ 200 mls/hr IV Q12HR HIEN Metronidazole 500 mg/ Premix 100 mls @ 100 mls/hr IV Q6H HIEN Ketorolac Tromethamine (Ketorolac 30 Mg/Ml Sdv) 30 mg IVPUSH Q6H PRN PRN Reason: Pain (moderate 4-6) Non-Formulary Medication (Amlodipine Besylate/Benazepril [Amlodipine-Benazepril 5-10 Mg]) 1 tab PO DAILY HIEN Ondansetron HCl (Ondansetron 4 Mg Tab.Dis) 4 mg PO Q4H PRN PRN Reason: nausea, able to take PO Pantoprazole Sodium (Pantoprazole 40 Mg Tab.Cr) 40 mg PO DAILY HIEN Sodium Chloride (Sodium Chloride 0.9% 10 Ml Syringe) 10 ml FLUSH ASDIRECTED PRN PRN Reason: Keep Vein Open Assessment/Plan Comment:: 1. Direct admission for failed outpatient treatment of Diverticulitis, Leukocytosis, Diarrhea, Dehydration. 2. Diverticulitis/Leukocytosis: BC x 2, Lactic acid, UA ordered. Ciprofloxacin 400 mg IV q12h, Metronidazole 500 mg IV q6h. Tylenol 650 mg po q4h as needed. Toradol 30 mg IV q6h as needed. Dilaudid 0.5 mg IV q2h as needed. Repeat CBC & BMP in am. 3. Diarrhea: C. Difficile pending, [facility] has not received sample at time of note, will notify us once they have results. Isolation. NS at 125 ml/hr. 4. Dehydration: NS at 125 ml/hr. 5. Diet: clears. 6. Activity: as tolerated. 7. DVT prophylaxis: Ambulate. Lovenox 40 mg sq q24h. 8. CODE STATUS: FULL. 9. Discharge planning: anticipate 48-72 hr of IV antibiotics, fluids and improvement of diarrhea, once can transition to orals & tolerating diet, home with . - Mortality Measure Prognosis:: Good
[2020-11-21] MEDS: Acetaminophen 325 MG Tab PO PRN (18:04)
[2020-11-21] MEDS: Enoxaparin 40 MG/0.4 ML Syringe SUBCUT SCH (18:04)
[2020-11-21] MEDS: Ondansetron 4 MG Tab.DIS PO PRN (18:04)
[2020-11-21] MEDS: metroNIDAZOLE/Normal Saline 500 MG in Premix Bag 1 BAG IV SCH (18:10)
[2020-11-21] MEDS: Sodium Chloride 0.9% 1,000 ML IV SCH (18:40)
[2020-11-21] MEDS: Ciprofloxacin in D5W 400 MG in Premix Bag 1 BAG IV SCH ×2 (20:59)
[2020-11-22] MEDS: metroNIDAZOLE/Normal Saline 500 MG in Premix Bag 1 BAG IV SCH ×3 (02:31→12:52)
[2020-11-22] MEDS: Ciprofloxacin in D5W 400 MG in Premix Bag 1 BAG IV SCH ×4 (05:37→16:43)
[2020-11-22] MEDS: Sodium Chloride 0.9% 1,000 ML IV SCH ×2 (05:37→16:39)
[2020-11-22] MEDS ORDERED: Pantoprazole 40 MG Tab.CR PO SCH (07:30)
[2020-11-22] MEDS ORDERED: BENAZEPRIL PO SCH (09:00)
[2020-11-22] MEDS ORDERED: AMLODIPINE BESYLATE PO SCH (09:00)
[2020-11-22] MEDS ORDERED: [UNRECOGNIZED DRUG - OTHER] PO SCH (09:00)
[2020-11-22] MEDS: Benazepril 10 MG Tab PO SCH (10:56)
[2020-11-22] MEDS: atorvaSTATin 10 MG Tab PO SCH (10:56)
[2020-11-22] MEDS: Vancomycin 125 MG Cap PO SCH ×4 (10:57→20:56)
[2020-11-22] MEDS: amLODIPine 5 MG Tab PO SCH (10:57)
--- NOTE | 2020-11-22 11:33 | PCM.PN ---
- General Info Date of Service: 11/22/20 Subjective Update: Ganga states his pain is improved, better than yesterday, has used Tylenol & Toradol but not Dilaudid. He has been having diarrhea every 2 hours overnight. C. Difficile test came back positive that was collected in the clinic. No fevers, nausea or vomiting. He is tolerating clear liquids, not sure if he wants to try full liquids yet. - Patient Data Vitals - Most Recent: Last Vital Signs Temp 97.8 F 11/22/20 04:00 Pulse 91 11/22/20 04:00 Resp 14 11/22/20 04:00 BP 132/78 11/22/20 10:57 Pulse Ox 97 11/22/20 04:00 Weight - Most Recent: 214 lb 12.8 oz I&O - Last 24 Hours: Intake & Output 11/21/20 11/22/20 11/22/20 22:59 06:59 14:59 Intake Total 1075 600 Output Total 690 250 Balance 385 350 Lab Results Last 24 Hours: Laboratory Results - last 24 hr 11/21/20 11/21/20 11/22/20 Range/Units 17:55 18:20 06:30 WBC 10.7 H (3.2-10.1) x10-3/uL RBC 4.62 (3.90-5.90) x10(6)uL Hgb 13.6 (12.9-17.7) g/dL Hct 39.5 (38.3-50.1) % MCV 85.4 (80.8-98.7) fL MCH 29.3 (27.0-33.3) pg MCHC 34.3 (28.7-35.3) g/dL RDW 13.3 (12.4-15.0) % Plt Count 162 (117-477) x10(3)uL MPV 8.1 (6.7-11.0) fL Neut % (Auto) 82.4 H (40.3-71.8) % Lymph % (Auto) 6.9 L (15.8-45.3) % [place] % (Auto) 9.8 (5.5-15.2) % Eos % (Auto) 0.7 (0.1-6.8) % Baso % (Auto) 0.2 L (0.3-3.8) % Neut # (Auto) 8.8 H (1.7-6.9) x10-3/uL Lymph # (Auto) 0.7 (0.5-4.5) x10-3/uL [place] # (Auto) 1.0 (0.0-1.2) x10-3/uL Eos # (Auto) 0.1 (0.0-0.6) x10-3/uL Baso # (Auto) 0.0 (0.0-0.3) x10-3/uL Sodium (135-145) mmol/L Potassium (3.5-5.3) mmol/L Chloride (100-110) mmol/L Carbon Dioxide (21-32) mmol/L BUN (7-18) mg/dL Creatinine (0.70-1.30) mg/dL Est Cr Clr Drug Dosing mL/min Estimated GFR (MDRD) (>60) BUN/Creatinine Ratio (9-20) Glucose (80-116) mg/dL Lactic Acid 0.7 (0.4-2.0) mmol/L Calcium (8.6-10.2) mg/dL Urine Color Yellow (YELLOW) Urine Appearance Clear (CLEAR) Urine pH 5.0 (5.0-6.5) Ur Specific [place] 1.010 (1.010-1.025) Urine Protein Negative (NEGATIVE) mg/dL Urine Glucose (UA) Normal (NORMAL) mg/dL Urine Ketones 50 H (NEGATIVE) mg/dL Urine Occult Blood Moderate H (NEGATIVE) Urine Nitrite Negative (NEGATIVE) Urine Bilirubin Negative (NEGATIVE) Urine Urobilinogen Normal (NEGATIVE) mg/dL Ur Leukocyte Esterase Negative (NEGATIVE) Urine RBC 0-5 (0-5) Urine WBC 0-5 (0-5) Ur Squamous Epith Cells Occasional (NS,R,O) Urine Bacteria Few H (NS) 11/22/20 Range/Units 06:30 WBC (3.2-10.1) x10-3/uL RBC (3.90-5.90) x10(6)uL Hgb (12.9-17.7) g/dL Hct (38.3-50.1) % MCV (80.8-98.7) fL MCH (27.0-33.3) pg MCHC (28.7-35.3) g/dL RDW (12.4-15.0) % Plt Count (117-477) x10(3)uL MPV (6.7-11.0) fL Neut % (Auto) (40.3-71.8) % Lymph % (Auto) (15.8-45.3) % [place] % (Auto) (5.5-15.2) % Eos % (Auto) (0.1-6.8) % Baso % (Auto) (0.3-3.8) % Neut # (Auto) (1.7-6.9) x10-3/uL Lymph # (Auto) (0.5-4.5) x10-3/uL [place] # (Auto) (0.0-1.2) x10-3/uL Eos # (Auto) (0.0-0.6) x10-3/uL Baso # (Auto) (0.0-0.3) x10-3/uL Sodium 140 (135-145) mmol/L Potassium 3.8 (3.5-5.3) mmol/L Chloride 103 (100-110) mmol/L Carbon Dioxide 26 (21-32) mmol/L BUN 12 (7-18) mg/dL Creatinine 1.0 (0.70-1.30) mg/dL Est Cr Clr Drug Dosing 87.67 mL/min Estimated GFR (MDRD) > 60 (>60) BUN/Creatinine Ratio 12.0 (9-20) Glucose 116 (80-116) mg/dL Lactic Acid (0.4-2.0) mmol/L Calcium 8.4 L (8.6-10.2) mg/dL Urine Color (YELLOW) Urine Appearance (CLEAR) Urine pH (5.0-6.5) Ur Specific [place] (1.010-1.025) Urine Protein (NEGATIVE) mg/dL Urine Glucose (UA) (NORMAL) mg/dL Urine Ketones (NEGATIVE) mg/dL Urine Occult Blood (NEGATIVE) Urine Nitrite (NEGATIVE) Urine Bilirubin (NEGATIVE) Urine Urobilinogen (NEGATIVE) mg/dL Ur Leukocyte Esterase (NEGATIVE) Urine RBC (0-5) Urine WBC (0-5) Ur Squamous Epith Cells (NS,R,O) Urine Bacteria (NS) Med Orders - Current: Current Medications Acetaminophen (Acetaminophen 325 Mg Tab) 650 mg PO Q4H PRN PRN Reason: Pain (Mild 1-3)/fever Last Admin: 11/21/20 18:04 Dose: 650 mg Documented by: Amlodipine Besylate (Amlodipine 5 Mg Tab) 5 mg PO DAILY [facility] Last Admin: 11/22/20 10:57 Dose: 5 mg Documented by: Atorvastatin Calcium (Atorvastatin 10 Mg Tab) 10 mg PO DAILY [facility] Last Admin: 11/22/20 10:56 Dose: 10 mg Documented by: Benazepril HCl (Benazepril 10 Mg Tab) 10 mg PO DAILY [facility] Last Admin: 11/22/20 10:56 Dose: 10 mg Documented by: Enoxaparin Sodium (Enoxaparin 40 Mg/0.4 Ml Syringe) 40 mg SUBCUT Q24H [facility] Last Admin: 11/21/20 18:04 Dose: 40 mg Documented by: Hydromorphone HCl (Hydromorphone 2 Mg/Ml Sdv) 0.5 mg IVPUSH Q2H PRN PRN Reason: Pain (severe 7-10) Metronidazole 500 mg/ Premix 100 mls @ 100 mls/hr IV Q6H [facility] Last Admin: 11/22/20 06:59 Dose: 100 mls/hr Documented by: Sodium Chloride (Normal Saline) 1,000 mls @ 125 mls/hr IV ASDIRECTED [facility] Last Admin: 11/22/20 05:37 Dose: 125 mls/hr Documented by: Ciprofloxacin/Dextrose 400 mg/ (Premix) 200 mls @ 200 mls/hr IV Q12H [facility] Ketorolac Tromethamine (Ketorolac 30 Mg/Ml Sdv) 30 mg IVPUSH Q6H PRN PRN Reason: Pain (moderate 4-6) Last Admin: 11/21/20 18:05 Dose: 30 mg Documented by: Ondansetron HCl (Ondansetron 4 Mg Tab.Dis) 4 mg PO Q4H PRN PRN Reason: nausea, able to take PO Last Admin: 11/21/20 18:04 Dose: 4 mg Documented by: Pantoprazole Sodium (Pantoprazole 40 Mg Tab.Cr) 40 mg PO DAILY@0600 [facility] Sodium Chloride (Sodium Chloride 0.9% 10 Ml Syringe) 10 ml FLUSH ASDIRECTED PRN PRN Reason: Keep Vein Open Last Admin: 11/21/20 18:30 Dose: 10 ml Documented by: Vancomycin HCl (Vancomycin 125 Mg Cap) 125 mg PO QID [facility] Stop: 12/01/20 21:01 Last Admin: 11/22/20 10:57 Dose: 125 mg Documented by: Discontinued Medications Metronidazole 500 mg/ Premix 100 mls @ 100 mls/hr IV Q8H [facility] Ciprofloxacin/Dextrose 400 mg/ (Premix) 200 mls @ 200 mls/hr IV Q12H [facility] Last Admin: 11/22/20 05:37 Dose: 200 mls/hr Documented by: Pantoprazole Sodium (Pantoprazole 40 Mg Tab.Cr) 40 mg PO ACBREAKFAST [facility] Last Admin: 11/22/20 06:59 Dose: 40 mg Documented by: - Exam General: Alert, Oriented, Cooperative, No Acute Distress Lungs: Clear to Auscultation, Normal Respiratory Effort Cardiovascular: Regular Rate, Regular Rhythm GI/Abdominal Exam: Soft, No Distention, Guarding, Tender (LLQ), Abnormal Bowel Sounds (Hyperactive x 4) - Patient Data Lab Results Last 24 hrs: Laboratory Results - last 24 hr 11/21/20 11/21/20 11/22/20 Range/Units 17:55 18:20 06:30 WBC 10.7 H (3.2-10.1) x10-3/uL RBC 4.62 (3.90-5.90) x10(6)uL Hgb 13.6 (12.9-17.7) g/dL Hct 39.5 (38.3-50.1) % MCV 85.4 (80.8-98.7) fL MCH 29.3 (27.0-33.3) pg MCHC 34.3 (28.7-35.3) g/dL RDW 13.3 (12.4-15.0) % Plt Count 162 (117-477) x10(3)uL MPV 8.1 (6.7-11.0) fL Neut % (Auto) 82.4 H (40.3-71.8) % Lymph % (Auto) 6.9 L (15.8-45.3) % [place] % (Auto) 9.8 (5.5-15.2) % Eos % (Auto) 0.7 (0.1-6.8) % Baso % (Auto) 0.2 L (0.3-3.8) % Neut # (Auto) 8.8 H (1.7-6.9) x10-3/uL Lymph # (Auto) 0.7 (0.5-4.5) x10-3/uL [place] # (Auto) 1.0 (0.0-1.2) x10-3/uL Eos # (Auto) 0.1 (0.0-0.6) x10-3/uL Baso # (Auto) 0.0 (0.0-0.3) x10-3/uL Sodium (135-145) mmol/L Potassium (3.5-5.3) mmol/L Chloride (100-110) mmol/L Carbon Dioxide (21-32) mmol/L BUN (7-18) mg/dL Creatinine (0.70-1.30) mg/dL Est Cr Clr Drug Dosing mL/min Estimated GFR (MDRD) (>60) BUN/Creatinine Ratio (9-20) Glucose (80-116) mg/dL Lactic Acid 0.7 (0.4-2.0) mmol/L Calcium (8.6-10.2) mg/dL Urine Color Yellow (YELLOW) Urine Appearance Clear (CLEAR) Urine pH 5.0 (5.0-6.5) Ur Specific [place] 1.010 (1.010-1.025) Urine Protein Negative (NEGATIVE) mg/dL Urine Glucose (UA) Normal (NORMAL) mg/dL Urine Ketones 50 H (NEGATIVE) mg/dL Urine Occult Blood Moderate H (NEGATIVE) Urine Nitrite Negative (NEGATIVE) Urine Bilirubin Negative (NEGATIVE) Urine Urobilinogen Normal (NEGATIVE) mg/dL Ur Leukocyte Esterase Negative (NEGATIVE) Urine RBC 0-5 (0-5) Urine WBC 0-5 (0-5) Ur Squamous Epith Cells Occasional (NS,R,O) Urine Bacteria Few H (NS) 11/22/20 Range/Units 06:30 WBC (3.2-10.1) x10-3/uL RBC (3.90-5.90) x10(6)uL Hgb (12.9-17.7) g/dL Hct (38.3-50.1) % MCV (80.8-98.7) fL MCH (27.0-33.3) pg MCHC (28.7-35.3) g/dL RDW (12.4-15.0) % Plt Count (117-477) x10(3)uL MPV (6.7-11.0) fL Neut % (Auto) (40.3-71.8) % Lymph % (Auto) (15.8-45.3) % [place] % (Auto) (5.5-15.2) % Eos % (Auto) (0.1-6.8) % Baso % (Auto) (0.3-3.8) % Neut # (Auto) (1.7-6.9) x10-3/uL Lymph # (Auto) (0.5-4.5) x10-3/uL [place] # (Auto) (0.0-1.2) x10-3/uL Eos # (Auto) (0.0-0.6) x10-3/uL Baso # (Auto) (0.0-0.3) x10-3/uL Sodium 140 (135-145) mmol/L Potassium 3.8 (3.5-5.3) mmol/L Chloride 103 (100-110) mmol/L Carbon Dioxide 26 (21-32) mmol/L BUN 12 (7-18) mg/dL Creatinine 1.0 (0.70-1.30) mg/dL Est Cr Clr Drug Dosing 87.67 mL/min Estimated GFR (MDRD) > 60 (>60) BUN/Creatinine Ratio 12.0 (9-20) Glucose 116 (80-116) mg/dL Lactic Acid (0.4-2.0) mmol/L Calcium 8.4 L (8.6-10.2) mg/dL Urine Color (YELLOW) Urine Appearance (CLEAR) Urine pH (5.0-6.5) Ur Specific [place] (1.010-1.025) Urine Protein (NEGATIVE) mg/dL Urine Glucose (UA) (NORMAL) mg/dL Urine Ketones (NEGATIVE) mg/dL Urine Occult Blood (NEGATIVE) Urine Nitrite (NEGATIVE) Urine Bilirubin (NEGATIVE) Urine Urobilinogen (NEGATIVE) mg/dL Ur Leukocyte Esterase (NEGATIVE) Urine RBC (0-5) Urine WBC (0-5) Ur Squamous Epith Cells (NS,R,O) Urine Bacteria (NS) Result Diagrams: 11/22/20 06:30 11/22/20 06:30 Sepsis Event Note - Evaluation Sepsis Screening Result: No Definite Risk - Focused Exam Vital Signs: Vital Signs Temp Pulse Resp BP BP Pulse Ox 11/22/20 10:57 132/78 11/22/20 10:56 132/78 11/22/20 04:00 97.8 F 91 14 117/75 97 11/22/20 00:00 99.0 F 95 16 131/79 98 - Problem List & Annotations (1) Diverticulosis large intestine w/o perforation or abscess w/o bleeding SNOMED Code(s): 069667951 Code(s): K57.30 - DVRTCLOS OF LG INT W/O PERFORATION OR ABSCESS W/O BLEEDING Status: Acute Current Visit: No (2) C. difficile diarrhea SNOMED Code(s): 3740596276831 Code(s): A04.72 - ENTEROCOLITIS D/T CLOSTRIDIUM DIFFICILE, NOT SPCF RECUR Status: Acute Current Visit: Yes (3) Dehydration SNOMED Code(s): 02700547 Code(s): E86.0 - DEHYDRATION Status: Acute Current Visit: No (4) Hypertension SNOMED Code(s): 58400721 Code(s): I10 - ESSENTIAL (PRIMARY) HYPERTENSION Status: Chronic Current Visit: Yes Qualifiers: Hypertension type: primary hypertension Qualified Code(s): I10 - Essential (primary) hypertension (5) Hyperlipidemia SNOMED Code(s): 87311480 Code(s): E78.5 - HYPERLIPIDEMIA, UNSPECIFIED Status: Chronic Current Visit: Yes (6) External hemorrhoids SNOMED Code(s): 15458984 Code(s): K64.4 - RESIDUAL HEMORRHOIDAL SKIN TAGS Status: Chronic Current Visit: Yes (7) CAD (coronary artery disease) SNOMED Code(s): 85485986 Code(s): I25.10 - ATHSCL HEART DISEASE OF [place] CORONARY ARTERY W/O ANG PCTRS Status: Chronic Current Visit: Yes (8) Migraine with aura SNOMED Code(s): 3596085 Code(s): G43.109 - MIGRAINE WITH AURA, NOT INTRACTABLE, W/O STATUS MIGRAINOSUS Status: Chronic Current Visit: Yes (9) Esophageal reflux SNOMED Code(s): 610572294 Code(s): K21.9 - GASTRO-ESOPHAGEAL REFLUX DISEASE WITHOUT ESOPHAGITIS Status: Chronic Current Visit: Yes (10) History of Clostridioides difficile infection SNOMED Code(s): 915113501846545, 093056302360522 Code(s): Z86.19 - PERSONAL HISTORY OF OTHER INFECTIOUS AND PARASITIC DISEASES Status: Resolved Current Visit: Yes - Problem List Review Problem List Initiated/Reviewed/Updated: Yes - My Orders Last 24 Hours: My Active Orders 11/21/20 Dinner Clear Liquid Diet [DIET] 11/21/20 17:35 Patient Status [ADT] Routine Ambulate [RC] ASDIRECTED Oxygen Therapy [RC] PRN VTE/DVT Education [RC] Per Unit Routine Vital Signs [RC] 08,12,16,20,00,04 Acetaminophen [TylenoL] 650 mg PO Q4H PRN HYDROmorphone [Dilaudid] 0.5 mg IVPUSH Q2H PRN Ketorolac [Toradol] 30 mg IVPUSH Q6H PRN Ondansetron [Zofran ODT] 4 mg PO Q4H PRN Sodium Chloride 0.9% [Saline Flush] 10 ml FLUSH ASDIRECTED PRN Blood Culture x2 Reflex Set [OM.PC] Urgent Isolation [COMM] Routine Saline Lock Insert [OM.PC] Routine Resuscitation Status Routine 11/21/20 17:36 Intake and Output [RC] 06,14,22 11/21/20 17:38 Nurse Communication: Isolation [RC] ASDIRECTED 11/21/20 17:55 CULTURE BLOOD [BC] Urgent CULTURE BLOOD [BC] Urgent 11/21/20 18:00 Enoxaparin [Lovenox] 40 mg SUBCUT Q24H metroNIDAZOLE/Normal Saline [Flagyl in NS 500 MG/100 ML] 500 mg Premix Bag 1 bag IV Q6H 11/21/20 18:15 Sodium Chloride 0.9% [Normal Saline] 1,000 ml IV ASDIRECTED 11/22/20 09:00 Benazepril [Lotensin] 10 mg PO DAILY amLODIPine [Norvasc] 5 mg PO DAILY atorvaSTATin [Lipitor] 10 mg PO DAILY 11/22/20 09:30 Vancomycin [Vancocin 125 MG Capsule] 125 mg PO QID 11/22/20 17:00 Ciprofloxacin in D5W [Cipro in D5W 400 MG/200 ML] 400 mg Premix Bag 1 bag IV Q12H 11/23/20 06:00 Pantoprazole [ProTONIX] 40 mg PO DAILY@0600 - Plan Plan:: 1. C. difficile diarrhea: Vancomycin 125 mg po qid. 2. Diverticulitis/Leukocytosis: BC x 2, Lactic acid 0.7, UA showed ketones & blood but no infection. Ciprofloxacin 400 mg IV q12h, Metronidazole 500 mg IV q6h. Tylenol 650 mg po q4h as needed. Toradol 30 mg IV q6h as needed. Dilaudid 0.5 mg IV q2h as needed. Repeat CBC in am. 3. Diarrhea: C. Difficile pending, [place] lab has not received sample at time of note, will notify us once they have results. Isolation. NS at 125 ml/hr. BMP in am. 4. Diet: clears. 5. Discharge planning: anticipate 48-72 hr of IV antibiotics, fluids and improvement of diarrhea, once can transition to orals & tolerating diet, home with .
[2020-11-22] MEDS: Acetaminophen 325 MG Tab PO PRN (13:04)
[2020-11-22] MEDS: Enoxaparin 40 MG/0.4 ML Syringe SUBCUT SCH (17:46)
[2020-11-22] MEDS: metroNIDAZOLE/Normal Saline 100 ML IV SCH (20:56)
[2020-11-23] MEDS: Sodium Chloride 0.9% 1,000 ML IV SCH ×2 (01:42→12:27)
[2020-11-23] MEDS: metroNIDAZOLE/Normal Saline 100 ML IV SCH ×2 (03:56→12:28)
[2020-11-23] MEDS: Ciprofloxacin in D5W 400 MG in Premix Bag 1 BAG IV SCH ×2 (05:12)
[2020-11-23] MEDS: Ondansetron 4 MG Tab.DIS PO PRN (05:21)
[2020-11-23] MEDS ORDERED: Pantoprazole 40 MG Tab.CR PO SCH (06:00)
[2020-11-23] MEDS: Vancomycin 125 MG Cap PO SCH ×2 (09:00→12:28)
[2020-11-23] MEDS: atorvaSTATin 10 MG Tab PO SCH (09:01)
[2020-11-23] MEDS: amLODIPine 5 MG Tab PO SCH (09:01)
[2020-11-23] MEDS: Benazepril 10 MG Tab PO SCH (09:01)
--- NOTE | 2020-11-23 15:10 | PCM.DCSUM1 ---
Discharge Summary - Hospital Course HPI Initial Comments: Ganga presented to [facility] for 4 days of worsening abdominal pain, nausea, low grade fever, fatigue, weakness and diarrhea. He had been treated for diverticulitis a month ago with Augmentin for 10 days then he got worse again and called his PCP and started another round of Augmentin on 11/08, finished course on 11/17. He does know how many diarrhea stools he has had. History of C. difficile in past after treatment for diverticulitis. He had CBC, BMP and C. Diff test done in clinic. He had CT abdomen/pelvis done which showed diverticulitis, no abscess or perforation. Also thickened bladder wall. His WBC was 18.2, Hgb 15.2, Plt 229. Glu 88, BUN 13, Cr 1.01, Na 139, K 4.6, Cl 102, CO2 25, Ca 10.2. C. Difficile pending, has not reached [facility] in [place] yet but they will notify our lab once they get results. He states his urine has been dark, some difficulty urinating. Denies frequency, or hematuria. Diagnosis: Stroke: No - Discharge Data Discharge Date: 11/23/20 Discharge Disposition: Home, Self-Care 01 Condition: Good - Referral to Home Health Primary Care Physician: Tremaine Higgins MD - Discharge Diagnosis/Problem(s) (1) Diverticulosis large intestine w/o perforation or abscess w/o bleeding SNOMED Code(s): 960877390 ICD Code: K57.30 - DVRTCLOS OF LG INT W/O PERFORATION OR ABSCESS W/O BLEEDING Status: Acute (2) C. difficile diarrhea SNOMED Code(s): 6275076197825 ICD Code: A04.72 - ENTEROCOLITIS D/T CLOSTRIDIUM DIFFICILE, NOT SPCF RECUR Status: Acute (3) Dehydration SNOMED Code(s): 82715676 ICD Code: E86.0 - DEHYDRATION Status: Acute (4) Hypertension SNOMED Code(s): 43609509 ICD Code: I10 - ESSENTIAL (PRIMARY) HYPERTENSION Status: Chronic Qualifiers: Hypertension type: primary hypertension Qualified Code(s): I10 - Essential (primary) hypertension (5) Hyperlipidemia SNOMED Code(s): 23674755 ICD Code: E78.5 - HYPERLIPIDEMIA, UNSPECIFIED Status: Chronic (6) External hemorrhoids SNOMED Code(s): 74088216 ICD Code: K64.4 - RESIDUAL HEMORRHOIDAL SKIN TAGS Status: Chronic (7) CAD (coronary artery disease) SNOMED Code(s): 23791905 ICD Code: I25.10 - ATHSCL HEART DISEASE OF [place] CORONARY ARTERY W/O ANG PCTRS Status: Chronic (8) Migraine with aura SNOMED Code(s): 2268497 ICD Code: G43.109 - MIGRAINE WITH AURA, NOT INTRACTABLE, W/O STATUS M IGRAINOSUS Status: Chronic (9) Esophageal reflux SNOMED Code(s): 986164317 ICD Code: K21.9 - GASTRO-ESOPHAGEAL REFLUX DISEASE WITHOUT ESOPHAGITIS Status: Chronic - Patient Summary/Data Hospital Course: Ganga was admitted direct from clinic on Saturday evening, he was started on Ciprofloxacin 400 mg IV q12h and Metronidazole 500 mg IV q6h, then changed to q8h next day. His C. difficile from clinic came back positive 11/22 and started on Vancomycin 125 mg qid for 10 days. He had 6 doses of vancomycin here and will have 34 more doses to complete at home. His WBC was 18.2 on admission, came down to 10.7 and 7.6 today. His chemistry stayed stable. His lactic acid was 0.7. Blood culture no growth to date. His UA showed 50 ketones and moderate blood but no signs of infection. He was on clear diet with NS at 125 ml/hr. He required Tylenol & Toradol as needed pain. He did not require any doses of Dilaudid during his hospital stay. He was nauseous early this am and required Zofran but resolved and advanced diet to full liquids then soft GI diet which he tolerated. Wants to go home today. - Patient Instructions Diet: GI Soft/Low Residue/Low Fiber Activity: As Tolerated Driving: Do Not Drive Showering/Bathing: May Shower Notify Provider of: Fever, Increased Pain, Nausea and/or Vomiting Other/Special Instructions: Follow up with Dr Higgins in 1 week. - Discharge Plan *PRESCRIPTION DRUG MONITORING PROGRAM REVIEWED*: Not Applicable *COPY OF PRESCRIPTION DRUG MONITORING REPORT IN PATIENT PRANAV: Not Applicable Prescriptions/Med Rec: Ciprofloxacin [Ciprofloxacin HCl] 500 mg PO BID #16 tab metroNIDAZOLE [Metronidazole] 500 mg PO Q8H #23 tablet Vancomycin [Vancocin 125 MG Capsule] 125 mg PO QID #34 cap Home Medications: Home Meds amLODIPine Besylate/Benazepril [Amlodipine-Benazepril 5-10 MG] 1 tab PO DAILY 01/20/17 [History] atorvaSTATin [Lipitor] 10 mg PO DAILY 01/20/17 [History] Aspirin [Adult Low Dose Aspirin EC] 81 mg PO DAILY 05/31/17 [History] Pantoprazole [ProTONIX] 40 mg PO DAILY 04/14/20 [History] Acetaminophen [Tylenol] 650 mg PO Q4H PRN tablet 11/23/20 [Rx] Ciprofloxacin [Ciprofloxacin HCl] 500 mg PO BID #16 tab 11/23/20 [Rx] Vancomycin [Vancocin 125 MG Capsule] 125 mg PO QID #34 cap 11/23/20 [Rx] metroNIDAZOLE [Metronidazole] 500 mg PO Q8H #23 tablet 11/23/20 [Rx] Oxygen Therapy Mode: Room Air Patient Handouts: Diverticulitis, Almu-ed-Gbbx, Clostridioides Difficile Infection, Negt-hy-Osdh, Fall Prevention in Hospitals, Adult, Venous Thromboembolism Prevention Referrals: Tremaine Higgins MD [Primary Care Provider] - - Discharge Summary/Plan Comment DC Time >30 min.: No Total # of Minutes for Discharge Time: 8 min - General Info Date of Service: 11/23/20 Subjective Update: Ganga is doing much better, denies any abdominal pain, diarrhea has slowed a little bit. He is hungry and would like to try something more than clears. No nausea or vomiting. - Patient Data Vitals - Most Recent: Last Vital Signs Temp 97.8 F 11/23/20 12:00 Pulse 85 11/23/20 12:00 Resp 18 11/23/20 12:00 BP 110/70 11/23/20 12:00 Pulse Ox 99 11/23/20 12:00 Weight - Most Recent: 214 lb 12.8 oz I&O - Last 24 hours: Intake & Output 11/23/20 11/23/20 11/23/20 06:59 14:59 22:59 Intake Total 1194 786 Output Total 1200 Balance 1194 -414 Lab Results - Last 24 hrs: Laboratory Results - last 24 hr 11/23/20 11/23/20 Range/Units 09:25 09:25 WBC 7.6 (3.2-10.1) x10-3/uL RBC 4.63 (3.90-5.90) x10(6)uL Hgb 13.3 (12.9-17.7) g/dL Hct 39.8 (38.3-50.1) % MCV 86.0 (80.8-98.7) fL MCH 28.8 (27.0-33.3) pg MCHC 33.4 (28.7-35.3) g/dL RDW 13.1 (12.4-15.0) % Plt Count 195 (117-477) x10(3)uL MPV 8.3 (6.7-11.0) fL Neut % (Auto) 76.9 H (40.3-71.8) % Lymph % (Auto) 9.6 L (15.8-45.3) % [place] % (Auto) 11.3 (5.5-15.2) % Eos % (Auto) 1.9 (0.1-6.8) % Baso % (Auto) 0.3 (0.3-3.8) % Neut # (Auto) 5.9 (1.7-6.9) x10-3/uL Lymph # (Auto) 0.7 (0.5-4.5) x10-3/uL [place] # (Auto) 0.9 (0.0-1.2) x10-3/uL Eos # (Auto) 0.1 (0.0-0.6) x10-3/uL Baso # (Auto) 0.0 (0.0-0.3) x10-3/uL Sodium 139 (135-145) mmol/L Potassium 3.8 (3.5-5.3) mmol/L Chloride 106 (100-110) mmol/L Carbon Dioxide 27 (21-32) mmol/L BUN 7 (7-18) mg/dL Creatinine 0.7 (0.70-1.30) mg/dL Est Cr Clr Drug Dosing 125.24 mL/min Estimated GFR (MDRD) > 60 (>60) BUN/Creatinine Ratio 10.0 (9-20) Glucose 127 H (80-116) mg/dL Calcium 8.5 L (8.6-10.2) mg/dL CEDRIC Results - Last 24 hrs: Microbiology 11/21/20 17:55 Aerobic Blood Culture - Preliminary Blood - Venous - Lab Draw NO GROWTH AFTER 1 DAY Anaerobic Blood Culture - Preliminary NO GROWTH AFTER 1 DAY 11/21/20 17:55 Aerobic Blood Culture - Preliminary Blood - Venous NO GROWTH AFTER 1 DAY Anaerobic Blood Culture - Preliminary NO GROWTH AFTER 1 DAY Med Orders - Current: Current Medications Discontinued Medications Acetaminophen (Acetaminophen 325 Mg Tab) 650 mg PO Q4H PRN PRN Reason: Pain (Mild 1-3)/fever Last Admin: 11/22/20 13:04 Dose: 650 mg Documented by: Amlodipine Besylate (Amlodipine 5 Mg Tab) 5 mg PO DAILY [facility] Last Admin: 11/23/20 09:01 Dose: 5 mg Documented by: Atorvastatin Calcium (Atorvastatin 10 Mg Tab) 10 mg PO DAILY [facility] Last Admin: 11/23/20 09:01 Dose: 10 mg Documented by: Benazepril HCl (Benazepril 10 Mg Tab) 10 mg PO DAILY [facility] Last Admin: 11/23/20 09:01 Dose: 10 mg Documented by: Enoxaparin Sodium (Enoxaparin 40 Mg/0.4 Ml Syringe) 40 mg SUBCUT Q24H [facility] Last Admin: 11/22/20 17:46 Dose: 40 mg Documented by: Hydromorphone HCl (Hydromorphone 2 Mg/Ml Sdv) 0.5 mg IVPUSH Q2H PRN PRN Reason: Pain (severe 7-10) Metronidazole 500 mg/ Premix 100 mls @ 100 mls/hr IV Q8H [facility] Ciprofloxacin/Dextrose 400 mg/ (Premix) 200 mls @ 200 mls/hr IV Q12H [facility] Last Admin: 11/22/20 05:37 Dose: 200 mls/hr Documented by: Metronidazole 500 mg/ Premix 100 mls @ 100 mls/hr IV Q6H [facility] Last Admin: 11/22/20 12:52 Dose: 100 mls/hr Documented by: Sodium Chloride (Normal Saline) 1,000 mls @ 125 mls/hr IV ASDIRECTED [facility] Last Admin: 11/23/20 12:27 Dose: 125 mls/hr Documented by: Ciprofloxacin/Dextrose 400 mg/ (Premix) 200 mls @ 200 mls/hr IV Q12H [facility] Last Admin: 11/23/20 05:12 Dose: 200 mls/hr Documented by: Metronidazole (Flagyl In Ns 500 Mg/100 Ml) 100 mls @ 100 mls/hr IV Q8H [facility] Last Admin: 11/23/20 12:28 Dose: 100 mls/hr Documented by: Ketorolac Tromethamine (Ketorolac 30 Mg/Ml Sdv) 30 mg IVPUSH Q6H PRN PRN Reason: Pain (moderate 4-6) Last Admin: 11/21/20 18:05 Dose: 30 mg Documented by: Ondansetron HCl (Ondansetron 4 Mg Tab.Dis) 4 mg PO Q4H PRN PRN Reason: nausea, able to take PO Last Admin: 11/23/20 05:21 Dose: 4 mg Documented by: Pantoprazole Sodium (Pantoprazole 40 Mg Tab.Cr) 40 mg PO ACBREAKFAST [facility] Last Admin: 11/22/20 06:59 Dose: 40 mg Documented by: Pantoprazole Sodium (Pantoprazole 40 Mg Tab.Cr) 40 mg PO DAILY@0600 [facility] Last Admin: 11/23/20 05:21 Dose: 40 mg Documented by: Sodium Chloride (Sodium Chloride 0.9% 10 Ml Syringe) 10 ml FLUSH ASDIRECTED PRN PRN Reason: Keep Vein Open Last Admin: 11/21/20 18:30 Dose: 10 ml Documented by: Vancomycin HCl (Vancomycin 125 Mg Cap) 125 mg PO QID [facility] Stop: 12/01/20 21:01 Last Admin: 11/23/20 12:28 Dose: 125 mg Documented by: - Exam General: Reports: Alert, Oriented, Cooperative, No Acute Distress Lungs: Reports: Clear to Auscultation, Normal Respiratory Effort Cardiovascular: Reports: Regular Rate, Regular Rhythm GI/Abdominal Exam: Soft, Non-Tender, No Distention, Abnormal Bowel Sounds (hyperactive x 4)
== END 2020-11-23 14:43 | disposition home or self-care (01) | DRG 244 ==
LOC: FB.MS 17:10
PROVIDERS: ADMIT Family Medicine; ATTEND Family Medicine
DX: K57.30 Diverticulosis of large intestine without perforation or abscess without bleeding (principal); E86.0 Dehydration; I10 Essential (primary) hypertension; E78.5 Hyperlipidemia, unspecified; K64.4 Residual hemorrhoidal skin tags; I25.10 Atherosclerotic heart disease of native coronary artery without angina pectoris; G43.109 Migraine with aura, not intractable, without status migrainosus; K21.9 Gastro-esophageal reflux disease without esophagitis; N40.0 Benign prostatic hyperplasia without lower urinary tract symptoms; Z90.89 Acquired absence of other organs; Z98.890 Other specified postprocedural states; Z86.19 Personal history of other infectious and parasitic diseases
CPT/HCPCS: 36415; 80048; 81001; 83605; 85025; 87040; A9270-GY; J0744; J1650; J1885; J3490; J7030

== ENCOUNTER 2020-12-07 09:47 | Inpatient (IN) | payer BC ==
[2020-12-07] MEDS ORDERED: Sodium Chloride 0.9% 10 ML Syringe FLUSH PRN (09:58)
--- NOTE | 2020-12-07 10:04 | EDM.PDOC ---
ED HPI GENERAL MEDICAL PROBLEM - General Chief Complaint: Gastrointestinal Problem Stated Complaint: ??? Time Seen by Provider: 12/07/20 09:50 Source of Information: Reports: Patient, Old Records, RN History Limitations: Reports: No Limitations - History of Present Illness INITIAL COMMENTS - FREE TEXT/NARRATIVE: 60 yo male presents from home with fever and diarrhea that started this AM. He was recently tx'd for diverticulitis and C.diff. He finished the antibiotics that week. He also mentions onset in the last 12 hrs of dysuria. He had a fever at home this morning and did take acetaminophen. His stools yesterday were normal. He notes that his HR is elevated. He denies SOB. He feels overall badly. He is here with his . Onset: Today Onset Date: 12/07/20 Duration: Hour(s):, Constant Location: Reports: Abdomen Quality: Reports: Other (abdominal pain is not reported) Severity: Severe (diarrhea frequency at home today only) Improves with: Reports: Other (thinks he may be "cleaned out" now) Worsens with: Reports: Eating (and drinking?) Context: Reports: Other (See HPI) Associated Symptoms: Reports: Cough (chronic), Fever/Chills, Weakness (generalized). Denies: Nausea/Vomiting, Shortness of Breath Treatments [employer]: Reports: Acetaminophen - Related Data Allergies Allergy/AdvReac Type Severity Reaction Status Date / Time No Known Allergies Allergy Verified 12/07/20 10:14 Home Meds: Home Meds amLODIPine Besylate/Benazepril [Amlodipine-Benazepril 5-10 MG] 1 tab PO DAILY 01/20/17 [History] atorvaSTATin [Lipitor] 10 mg PO DAILY 01/20/17 [History] Aspirin [Adult Low Dose Aspirin EC] 81 mg PO DAILY 05/31/17 [History] Pantoprazole [ProTONIX] 40 mg PO DAILY 04/14/20 [History] Acetaminophen [Tylenol] 650 mg PO Q4H PRN tablet 11/23/20 [Rx] Ciprofloxacin [Ciprofloxacin HCl] 500 mg PO BID #16 tab 11/23/20 [Rx] Vancomycin [Vancocin 125 MG Capsule] 125 mg PO QID #34 cap 11/23/20 [Rx] metroNIDAZOLE [Metronidazole] 500 mg PO Q8H #23 tablet 09/22/21 [Rx] Past Medical History HEENT History: Reports: Sinusitis Cardiovascular History: Reports: High Cholesterol, Hypertension, Other (See Below) Other Cardiovascular History: CAROTID ARTERY DISEASE Respiratory History: Reports: None Gastrointestinal History: Reports: GERD, Other (See Below) Other Gastrointestinal History: HEMORRHOIDS Genitourinary History: Reports: BPH Musculoskeletal History: Reports: Arthritis, Neck Pain, Chronic, Other (See Below) Other Musculoskeletal History: LUMBAGO, THORACIC BACK PAIN, LUMBAR DDD AND DISC HERNIATION Neurological History: Reports: Migraines, Other (See Below) Other Neuro History: SUBARACHNOID HEMORRHAGE Psychiatric History: Reports: None Endocrine/Metabolic History: Reports: Other (See Below) Other Endocrine/Metabolic History: HYPERHIDROSIS Oncologic (Cancer) History: Reports: None Dermatologic History: Reports: None - Infectious Disease History Infectious Disease History: Reports: Chicken Pox, Measles, Mumps - Past Surgical History Female Surgical History: Social & Family History - Family History Family Medical History: No Pertinent Family History - Caffeine Use Caffeine Use: Reports: None Other Caffeine Use: gatorade ED ROS GENERAL - Review of Systems Review Of Systems: See Below Constitutional: Reports: Fever, Chills, Malaise, Weakness (generalized) HEENT: Reports: No Symptoms Respiratory: Reports: No Symptoms Cardiovascular: Reports: Other (tachycardia) Endocrine: Reports: No Symptoms GI/Abdominal: Reports: Diarrhea. Denies: Abdominal Pain, Black Stool, Bloody Stool, Constipation, Distension, Flatus, Hematemesis, Hematochezia, Nausea, Vomiting Musculoskeletal: Reports: No Symptoms Skin: Reports: No Symptoms Neurological: Reports: No Symptoms Psychiatric: Reports: No Symptoms ED EXAM, GI/ABD - Physical Exam Exam: See Below Exam Limited By: No Limitations General Appearance: Alert, WD/WN, No Apparent Distress Eyes: Bilateral: Normal Appearance Ears: Normal External Exam, Normal Canal, Hearing Grossly Normal Nose: Normal Inspection, No Blood Throat/Mouth: Normal Inspection, Normal Lips, Normal Oropharynx, Normal Voice, No Airway Compromise Head: Atraumatic, Normocephalic Neck: Normal Inspection Respiratory/Chest: No Respiratory Distress, Lungs Clear, Normal Breath Sounds, No Accessory Muscle Use Cardiovascular: Regular Rate, Rhythm, No Edema, Tachycardia GI/Abdominal Exam: Soft, Non-Tender, No Distention. No: Distended, Tender Back Exam: Normal Inspection Extremities: Normal Inspection, Normal Range of Motion, Non-Tender, No Pedal Edema Neurological: Alert, Oriented, CN II-XII Intact, Normal Cognition, No Motor/Sensory Deficits Psychiatric: Normal Affect, Normal Mood Skin Exam: Warm, Dry, Intact, Normal Color, No Rash Course - Vital Signs Text/Narrative:: Dr[place] 1118h - Orders/Labs/Meds Orders: Active Orders 24 hr Category Date Time Status Orthostatic Vital Signs [RC] ASDIRECTED Care 12/07/20 09:58 Active Fingers Second Digit Lt F1 [CR] Stat Exams 12/07/20 11:11 Ordered CULTURE BLOOD [BC] Stat Lab 12/07/20 10:14 Received CULTURE BLOOD [BC] Stat Lab 12/07/20 10:50 Ordered UA W/MICROSCOPIC [URIN] Stat Lab 12/07/20 10:40 Received Lactated Ringers [Ringers, Lactated] 1,000 ml Med 12/07/20 10:40 Active IV BOLUS Sodium Chloride 0.9% [Saline Flush] Med 12/07/20 09:58 Active 10 ml FLUSH ASDIRECTED PRN Saline Lock Insert [OM.PC] Routine Oth 12/07/20 09:58 Ordered Medication Orders Lactated Ringer's (Ringers, Lactated) 1,000 mls @ 1,000 mls/hr IV BOLUS ONE Stop: 12/07/20 11:39 Last Admin: 12/07/20 10:49 Dose: 1,000 mls/hr Documented by: ASUFKAT Sodium Chloride (Sodium Chloride 0.9% 10 Ml Syringe) 10 ml FLUSH ASDIRECTED PRN PRN Reason: Keep Vein Open Labs: Laboratory Tests 12/07/20 12/07/20 12/07/20 Range/Units 10:14 10:14 10:14 WBC 26.2 H (3.2-10.1) x10-3/uL RBC 4.97 (3.90-5.90) x10(6)uL Hgb 14.2 (12.9-17.7) g/dL Hct 42.6 (38.3-50.1) % MCV 85.7 (80.8-98.7) fL MCH 28.5 (27.0-33.3) pg MCHC 33.2 (28.7-35.3) g/dL RDW 13.5 (12.4-15.0) % Plt Count 220 (117-477) x10(3)uL Sodium 140 (135-145) mmol/L Potassium 3.9 (3.5-5.3) mmol/L Chloride 105 (100-110) mmol/L Carbon Dioxide 25 (21-32) mmol/L BUN 15 (7-18) mg/dL Creatinine 1.0 (0.70-1.30) mg/dL Est Cr Clr Drug Dosing TNP Estimated GFR (MDRD) > 60 (>60) BUN/Creatinine Ratio 15.0 (9-20) Glucose 119 H (80-116) mg/dL Lactic Acid 1.0 (0.4-2.0) mmol/L Calcium 8.8 (8.6-10.2) mg/dL Meds: Medications Generic Name Dose Route Start Last Admin Trade Name Freq PRN Reason Stop Dose Admin Lactated Ringer's 1,000 mls @ 1,000 mls/hr 12/07/20 10:40 12/07/20 10:49 Ringers, Lactated IV 12/07/20 11:39 1,000 mls/hr BOLUS ONE Administration Sodium Chloride 10 ml 12/07/20 09:58 Sodium Chloride 0.9% 10 Ml Syringe FLUSH ASDIRECTED PRN Keep Vein Open Discontinued Medications Generic Name Dose Route Start Last Admin Trade Name Freq PRN Reason Stop Dose Admin Metronidazole 500 mg 12/07/20 11:05 Metronidazole 500 Mg Tab PO 12/07/20 11:06 ONETIME ONE Vancomycin HCl 125 mg 12/07/20 11:04 Vancomycin 125 Mg Cap PO 12/07/20 11:05 NOW STA - Radiology Interpretation Free Text/Narrative:: L index finger X-ray- - Re-Assessments/Exams Free Text/Narrative Re-Assessment/Exam: 12/07/20 11:21 He got up from his bed to go to the bathroom for a BM and got his L index finger caught in the hinged side of the door resulting in injury. We will get an X- ray. Departure - Departure Time of Disposition: 11:50 Disposition: Admitted As Inpatient 65 Condition: Fair Clinical Impression: Clostridioides difficile diarrhea, Orthostatic hypotension - Discharge Information *PRESCRIPTION DRUG MONITORING PROGRAM REVIEWED*: Not Applicable *COPY OF PRESCRIPTION DRUG MONITORING REPORT IN PATIENT PRANAV: Not Applicable Referrals: Tremaine Higgins MD [Primary Care Provider] - Forms: ED Department Discharge - My Orders Last 24 Hours: My Active Orders 12/07/20 09:58 Orthostatic Vital Signs [RC] ASDIRECTED Sodium Chloride 0.9% [Saline Flush] 10 ml FLUSH ASDIRECTED PRN Saline Lock Insert [OM.PC] Routine 12/07/20 10:14 CULTURE BLOOD [BC] Stat 12/07/20 10:40 UA W/MICROSCOPIC [URIN] Stat Lactated Ringers [Ringers, Lactated] 1,000 ml IV BOLUS 12/07/20 10:50 CULTURE BLOOD [BC] Stat 12/07/20 11:11 Fingers Second Digit Lt F1 [CR] Stat - Assessment/Plan Last 24 Hours: My Active Orders 12/07/20 09:58 Orthostatic Vital Signs [RC] ASDIRECTED Sodium Chloride 0.9% [Saline Flush] 10 ml FLUSH ASDIRECTED PRN Saline Lock Insert [OM.PC] Routine 12/07/20 10:14 CULTURE BLOOD [BC] Stat 12/07/20 10:40 UA W/MICROSCOPIC [URIN] Stat Lactated Ringers [Ringers, Lactated] 1,000 ml IV BOLUS 12/07/20 10:50 CULTURE BLOOD [BC] Stat 12/07/20 11:11 Fingers Second Digit Lt F1 [CR] Stat
[2020-12-07] MEDS ORDERED: Lactated Ringers 1,000 ML IV ONE (10:40)
[2020-12-07] MEDS ORDERED: Vancomycin 125 MG Cap PO STA (11:04)
[2020-12-07] MEDS ORDERED: metroNIDAZOLE 500 MG Tab PO ONE (11:05)
[2020-12-07] MEDS ORDERED: Acetaminophen 325 MG Tab PO PRN ×2 (11:29→11:33)
[2020-12-07] MEDS: Vancomycin 125 MG Cap PO SCH ×3 (12:32→20:16)
[2020-12-07] MEDS: Lactated Ringers 1,000 ML IV SCH ×3 (12:34→20:57)
[2020-12-07] MEDS: metroNIDAZOLE 500 MG Tab PO SCH ×2 (12:34→20:16)
--- NOTE | 2020-12-07 14:47 | CR ---
INDICATION: Injury. Caught in a door. LEFT SECOND FINGER: Three views of the left index finger revealed mild soft tissue swelling at the proximal phalangeal area. An acute fracture or dislocation was not identified. There are some mild degenerative changes noted at the first metacarpocarpal joint and first metacarpophalangeal joint. If symptoms persist - if an occult fracture site is suspected clinically, reexamination in 10 to 14 days may be helpful. ALICIAD
--- NOTE | 2020-12-07 17:13 | PCM.HP.2 ---
H&P History of Present Illness - General Date of Service: 12/07/20 Admit Problem/Dx: Admission Diagnosis/Problem Admission Diagnosis/Problem Clostridium difficile diarrhea Source of Information: Patient, Old Records History Limitations: Reports: No Limitations - History of Present Illness Initial Comments - Free Text/Narative: Ganga was admitted this morning because of fever and diarrhea. He was recent discharged, 11/23/21, for C. difficile colitis on oral vancomycin. He was doing better until yesterday night when he developed symptoms. He feels poorly, weak nauseous. He denies abdominal pain - Related Data Allergies/Adverse Reactions: Allergies Allergy/AdvReac Type Severity Reaction Status Date / Time No Known Allergies Allergy Verified 12/07/20 10:14 Home Medications: Home Meds amLODIPine Besylate/Benazepril [Amlodipine-Benazepril 5-10 MG] 1 tab PO DAILY 01/20/17 [History] atorvaSTATin [Lipitor] 10 mg PO DAILY 01/20/17 [History] Aspirin [Adult Low Dose Aspirin EC] 81 mg PO DAILY 05/31/17 [History] Pantoprazole [ProTONIX] 40 mg PO DAILY 04/14/20 [History] Acetaminophen [Tylenol] 650 mg PO Q4H PRN tablet 11/23/20 [Rx] Past Medical History HEENT History: Reports: Sinusitis Cardiovascular History: Reports: High Cholesterol, Hypertension, Other (See Below) Other Cardiovascular History: CAROTID ARTERY DISEASE Respiratory History: Reports: None Gastrointestinal History: Reports: GERD, Other (See Below) Other Gastrointestinal History: HEMORRHOIDS Genitourinary History: Reports: BPH Musculoskeletal History: Reports: Arthritis, Neck Pain, Chronic, Other (See B elow) Other Musculoskeletal History: LUMBAGO, THORACIC BACK PAIN, LUMBAR DDD AND DISC HERNIATION Neurological History: Reports: Migraines, Other (See Below) Other Neuro History: SUBARACHNOID HEMORRHAGE Psychiatric History: Reports: None Endocrine/Metabolic History: Reports: Other (See Below) Other Endocrine/Metabolic History: HYPERHIDROSIS Oncologic (Cancer) History: Reports: None Dermatologic History: Reports: None - Infectious Disease History Infectious Disease History: Reports: Chicken Pox, Measles, Mumps - Past Surgical History HEENT Surgical History: Reports: Adenoidectomy, Naso-Sinus Surgery, Oral Surgery, Tonsillectomy Cardiovascular Surgical History: Reports: None Respiratory Surgical History: Reports: None GI Surgical History: Reports: Colonoscopy, EGD Male Surgical History: Reports: None Endocrine Surgical History: Reports: None Neurological Surgical History: Reports: None Musculoskeletal Surgical History: Reports: None Dermatological Surgical History: Reports: None Social & Family History - Family History Family Medical History: No Pertinent Family History - Tobacco Use Tobacco Use Status *Q: Former Tobacco User Used Tobacco, but Quit: Yes Month/Year Tobacco Last Used: 1981 Second Hand Smoke Exposure: No - Caffeine Use Caffeine Use: Reports: None Other Caffeine Use: gatorade - Alcohol Use Number of Drinks Per Day: 1 - Recreational Drug Use Recreational Drug Use: No H&P Review of Systems - Review of Systems: Review Of Systems: Comprehensive ROS is negative, except as noted in HPI. Exam - Exam Exam: See Below - Vital Signs Vital Signs: Last Vital Signs Temp 97.8 F 12/07/20 16:00 Pulse 98 12/07/20 16:00 Resp 18 12/07/20 16:00 BP 125/79 12/07/20 16:00 Pulse Ox 97 12/07/20 16:00 Weight: 96.303 kg - Exam General: Lethargic HEENT: PERRLA, Hearing Intact, Mucosa Moist & [place], Nares Patent, Normal Nasal Septum, Posterior Pharynx Clear, Conjunctiva Clear, EOMI, EACs Clear, TMs Clear Neck: Supple, Trachea Midline, 2 Lungs: Clear to Auscultation, Normal Respiratory Effort Cardiovascular: Regular Rate, Regular Rhythm GI/Abdominal Exam: Normal Bowel Sounds, Soft, Non-Tender, No Organomegaly, No Distention, No Abnormal Bruit, No Mass, Pelvis Stable (Male) Exam: Deferred Rectal (Males) Exam: Deferred Back Exam: Normal Inspection, Full Range of Motion, NT Extremities: Normal Inspection, Normal Range of Motion, Non-Tender, No Pedal Edema, Normal Capillary Refill Skin: Warm, Dry, Intact Neurological: Cranial Nerves Intact, Reflexes Equal Bilateral Neuro Extensive - Mental Status: Alert, Oriented x3, Normal Mood/Affect, Normal Cognition Neuro Extensive - Motor, Sensory, Reflexes: CN II-XII Intact, Normal Gait, Normal Reflexes Psychiatric: Alert, Normal Affect, Normal Mood - Patient Data Lab Results Last 24 hrs: Laboratory Results - last 24 hr 12/07/20 12/07/20 12/07/20 Range/Units 10:14 10:14 10:14 WBC 26.2 H (3.2-10.1) x10-3/uL RBC 4.97 (3.90-5.90) x10(6)uL Hgb 14.2 (12.9-17.7) g/dL Hct 42.6 (38.3-50.1) % MCV 85.7 (80.8-98.7) fL MCH 28.5 (27.0-33.3) pg MCHC 33.2 (28.7-35.3) g/dL RDW 13.5 (12.4-15.0) % Plt Count 220 (117-477) x10(3)uL Sodium 140 (135-145) mmol/L Potassium 3.9 (3.5-5.3) mmol/L Chloride 105 (100-110) mmol/L Carbon Dioxide 25 (21-32) mmol/L BUN 15 (7-18) mg/dL Creatinine 1.0 (0.70-1.30) mg/dL Est Cr Clr Drug Dosing TNP Estimated GFR (MDRD) > 60 (>60) BUN/Creatinine Ratio 15.0 (9-20) Glucose 119 H (80-116) mg/dL Lactic Acid 1.0 (0.4-2.0) mmol/L Calcium 8.8 (8.6-10.2) mg/dL Urine Color (YELLOW) Urine Appearance (CLEAR) Urine pH (5.0-6.5) Ur Specific [place] (1.010-1.025) Urine Protein (NEGATIVE) mg/dL Urine Glucose (UA) (NORMAL) mg/dL Urine Ketones (NEGATIVE) mg/dL Urine Occult Blood (NEGATIVE) Urine Nitrite (NEGATIVE) Urine Bilirubin (NEGATIVE) Urine Urobilinogen (NEGATIVE) mg/dL Ur Leukocyte Esterase (NEGATIVE) Urine WBC (0-5) Ur Squamous Epith Cells (NS,R,O) Urine Bacteria (NS) SARS-CoV-2 RNA (KHOA) (NEGATIVE) 12/07/20 12/07/20 Range/Units 10:40 12:00 WBC (3.2-10.1) x10-3/uL RBC (3.90-5.90) x10(6)uL Hgb (12.9-17.7) g/dL Hct (38.3-50.1) % MCV (80.8-98.7) fL MCH (27.0-33.3) pg MCHC (28.7-35.3) g/dL RDW (12.4-15.0) % Plt Count (117-477) x10(3)uL Sodium (135-145) mmol/L Potassium (3.5-5.3) mmol/L Chloride (100-110) mmol/L Carbon Dioxide (21-32) mmol/L BUN (7-18) mg/dL Creatinine (0.70-1.30) mg/dL Est Cr Clr Drug Dosing Estimated GFR (MDRD) (>60) BUN/Creatinine Ratio (9-20) Glucose (80-116) mg/dL Lactic Acid (0.4-2.0) mmol/L Calcium (8.6-10.2) mg/dL Urine Color Yellow (YELLOW) Urine Appearance Slightly cloudy (CLEAR) Urine pH 5.0 (5.0-6.5) Ur Specific [place] 1.020 (1.010-1.025) Urine Protein Negative (NEGATIVE) mg/dL Urine Glucose (UA) Normal (NORMAL) mg/dL Urine Ketones Negative (NEGATIVE) mg/dL Urine Occult Blood Negative (NEGATIVE) Urine Nitrite Negative (NEGATIVE) Urine Bilirubin Negative (NEGATIVE) Urine Urobilinogen Normal (NEGATIVE) mg/dL Ur Leukocyte Esterase Negative (NEGATIVE) Urine WBC 0-5 (0-5) Ur Squamous Epith Cells Few H (NS,R,O) Urine Bacteria Few H (NS) SARS-CoV-2 RNA (KHOA) Negative (NEGATIVE) Result Diagrams: 12/07/20 10:14 12/07/20 10:14 Sepsis Event Note - Evaluation Sepsis Screening Result: Sepsis Risk - Focused Exam Vital Signs: Vital Signs Temp Pulse Resp BP Pulse Ox 12/07/20 16:00 97.8 F 98 18 125/79 97 12/07/20 13:45 100.5 F 108 H 16 132/79 98 - Problem List (1) C. difficile diarrhea SNOMED Code(s): 6229026699158 ICD Code: A04.72 - ENTEROCOLITIS D/T CLOSTRIDIUM DIFFICILE, NOT SPCF RECUR Status: Acute Current Visit: Yes (2) Esophageal reflux SNOMED Code(s): 501579390 ICD Code: K21.9 - GASTRO-ESOPHAGEAL REFLUX DISEASE WITHOUT ESOPHAGITIS Status: Chronic Current Visit: No (3) Hypertension SNOMED Code(s): 95477107 ICD Code: I10 - ESSENTIAL (PRIMARY) HYPERTENSION Status: Chronic Current Visit: No Qualifiers: Hypertension type: primary hypertension Qualified Code(s): I10 - Essential (primary) hypertension Problem List Initiated/Reviewed/Updated: Yes Orders Last 24hrs: Active Orders 24 hr Category Date Time Status Patient Status [ADT] Routine ADT 12/07/20 11:29 Active Antiembolic Devices [RC] .Routine Care 12/07/20 11:29 Active Intake and Output [RC] QSHIFT Care 12/07/20 11:30 Active Oxygen Therapy [RC] PRN Care 12/07/20 11:29 Active Up With Assistance [RC] ASDIRECTED Care 12/07/20 11:29 Active VTE/DVT Education [RC] Per Unit Routine Care 12/07/20 11:29 Active Vaccine to be Administered/Admin Charge [RC] ASDIRECTED Care 12/07/20 14:03 Active Vital Signs [RC] 08,12,16,20,00,04 Care 12/07/20 11:29 Active Weight, Daily [Height and Weight] [RC] DAILY Care 12/07/20 17:01 Ordered Clear Liquid Diet [DIET] Diet 12/07/20 Lunch Ordered BASIC METABOLIC PANEL,BMP [CHEM] AM Lab 12/08/20 05:11 Ordered CBC WITH AUTO DIFF [HEME] AM Lab 12/08/20 05:11 Ordered CRP [C-REACTIVE PROTEIN] [CHEM] AM Lab 12/08/20 05:11 Ordered CULTURE BLOOD [BC] Stat Lab 12/07/20 10:14 Received CULTURE BLOOD [BC] Stat Lab 12/07/20 11:35 Received LACTIC ACID [CHEM] AM Lab 12/08/20 05:11 Ordered Acetaminophen [TylenoL] Med 12/07/20 11:29 Active 650 mg PO Q4H PRN Aspirin [Halfprin] Med 12/08/20 09:00 Active 81 mg PO DAILY Lactated Ringers [Ringers, Lactated] 1,000 ml Med 12/07/20 11:30 Active IV ASDIRECTED Ondansetron [Zofran] Med 12/07/20 17:00 Ordered 4 mg IVPUSH Q6H PRN Pantoprazole [ProTONIX] Med 12/08/20 06:00 Active 40 mg PO DAILY@0600 Pharmacy to Dose - InFluenza V [Pharmacy to Dose - Med 12/07/20 14:03 Pending InFluenza Vaccine] 1 each IM ONETIME ONE Sodium Chloride 0.9% [Saline Flush] Med 12/07/20 09:58 Active 10 ml FLUSH ASDIRECTED PRN Vancomycin [Vancocin 125 MG Capsule] Med 12/07/20 13:00 Active 125 mg PO QID metroNIDAZOLE [Flagyl] Med 12/07/20 11:45 Active 500 mg PO Q8H Saline Lock Insert [OM.PC] Routine Oth 12/07/20 09:58 Ordered Resuscitation Status Routine Resus Stat 12/07/20 11:29 Ordered Medication Orders Acetaminophen (Acetaminophen 325 Mg Tab) 650 mg PO Q4H PRN PRN Reason: Pain (Mild 1-3)/fever Last Admin: 12/07/20 14:35 Dose: 650 mg Documented by: ZAIRA Aspirin (Aspirin 81 Mg Tab.Ec) 81 mg PO DAILY [facility] Lactated Ringer's (Ringers, Lactated) 1,000 mls @ 250 mls/hr IV ASDIRECTED [facility] Last Admin: 12/07/20 16:46 Dose: 250 mls/hr Documented by: Infusion: 12/07/20 16:34 Dose: 250 mls/hr Documented by: Admin: 12/07/20 12:34 Dose: 250 mls/hr Documented by: VANDANA Influenza Virus Vaccine (Pharmacy To Dose - Influenza Vaccine) 1 each IM ONETIME ONE Stop: 12/07/20 14:04 Metronidazole (Metronidazole 500 Mg Tab) 500 mg PO Q8H [facility] Last Admin: 12/07/20 12:34 Dose: 500 mg Documented by: VANDANA Ondansetron HCl (Ondansetron 4 Mg/2 Ml Sdv) 4 mg IVPUSH Q6H PRN PRN Reason: Nausea/Vomiting Pantoprazole Sodium (Pantoprazole 40 Mg Tab.Cr) 40 mg PO DAILY@0600 [facility] Sodium Chloride (Sodium Chloride 0.9% 10 Ml Syringe) 10 ml FLUSH ASDIRECTED PRN PRN Reason: Keep Vein Open Vancomycin HCl (Vancomycin 125 Mg Cap) 125 mg PO QID [facility] Last Admin: 12/07/20 16:53 Dose: 125 mg Documented by: Admin: 12/07/20 12:32 Dose: 125 mg Documented by: VANDANA Assessment/Plan Comment:: I will continued oral vancomycin, and Flagyl because of possibility of sign ificant disease giving systemic symptoms of fever chills. Replace IV fluids.
[2020-12-07] MEDS: Ondansetron 4 MG/2 ML SDV IVPUSH PRN (17:51)
[2020-12-08] MEDS: metroNIDAZOLE 500 MG Tab PO SCH ×3 (03:23→19:58)
[2020-12-08] MEDS: Lactated Ringers 1,000 ML IV SCH ×7 (03:23→23:29)
[2020-12-08] MEDS: Ondansetron 4 MG/2 ML SDV IVPUSH PRN (03:23)
[2020-12-08] MEDS: Pantoprazole 40 MG Tab.CR PO SCH (05:29)
[2020-12-08] MEDS ORDERED: Diatrizoate Meglumine/Diatrizoate Sodium 37% 30 ML Bottle PO ONE (06:50)
--- NOTE | 2020-12-08 09:00 | PCM.PN ---
- General Info Date of Service: 12/08/20 Subjective Update: Ganga still complains of feeling weak, and has profuse & intractable diarrhea.Fever broke last night Functional Status: Reports: Pain Controlled. Denies: New Symptoms - Review of Systems Cardiovascular: Reports: No Symptoms Gastrointestinal: Reports: Diarrhea Genitourinary: Reports: No Symptoms Musculoskeletal: Reports: No Symptoms - Patient Data Vitals - Most Recent: Last Vital Signs Temp 97.8 F 12/08/20 03:28 Pulse 90 12/08/20 03:28 Resp 18 12/08/20 03:28 BP 125/76 12/08/20 03:28 Pulse Ox 96 12/08/20 03:28 Orthostatic Blood Pressure [ 121/77 Standing] Orthostatic Blood Pressure [ 119/76 Sitting] Orthostatic Blood Pressure [ 126/73 Supine] Weight - Most Recent: 98.033 kg I&O - Last 24 Hours: Intake & Output 12/07/20 12/08/20 12/08/20 22:59 06:59 14:59 Intake Total 1678 Balance 1678 Lab Results Last 24 Hours: Laboratory Results - last 24 hr 12/07/20 12/07/20 12/07/20 Range/Units 10:14 10:14 10:14 WBC 26.2 H (3.2-10.1) x10-3/uL RBC 4.97 (3.90-5.90) x10(6)uL Hgb 14.2 (12.9-17.7) g/dL Hct 42.6 (38.3-50.1) % MCV 85.7 (80.8-98.7) fL MCH 28.5 (27.0-33.3) pg MCHC 33.2 (28.7-35.3) g/dL RDW 13.5 (12.4-15.0) % Plt Count 220 (117-477) x10(3)uL MPV (6.7-11.0) fL Add Manual Diff Neutrophils % (Manual) (46-82) % Lymphocytes % (Manual) (13-37) % Monocytes % (Manual) (4-12) % Sodium 140 (135-145) mmol/L Potassium 3.9 (3.5-5.3) mmol/L Chloride 105 (100-110) mmol/L Carbon Dioxide 25 (21-32) mmol/L BUN 15 (7-18) mg/dL Creatinine 1.0 (0.70-1.30) mg/dL Est Cr Clr Drug Dosing TNP Estimated GFR (MDRD) > 60 (>60) BUN/Creatinine Ratio 15.0 (9-20) Glucose 119 H (80-116) mg/dL Lactic Acid 1.0 (0.4-2.0) mmol/L Calcium 8.8 (8.6-10.2) mg/dL C-Reactive Protein (0.5-0.9) mg/dL Urine Color (YELLOW) Urine Appearance (CLEAR) Urine pH (5.0-6.5) Ur Specific [place] (1.010-1.025) Urine Protein (NEGATIVE) mg/dL Urine Glucose (UA) (NORMAL) mg/dL Urine Ketones (NEGATIVE) mg/dL Urine Occult Blood (NEGATIVE) Urine Nitrite (NEGATIVE) Urine Bilirubin (NEGATIVE) Urine Urobilinogen (NEGATIVE) mg/dL Ur Leukocyte Esterase (NEGATIVE) Urine WBC (0-5) Ur Squamous Epith Cells (NS,R,O) Urine Bacteria (NS) SARS-CoV-2 RNA (KHOA) (NEGATIVE) 12/07/20 12/07/20 12/08/20 Range/Units 10:40 12:00 06:40 WBC 15.5 H (3.2-10.1) x10-3/uL RBC 4.77 (3.90-5.90) x10(6)uL Hgb 13.5 (12.9-17.7) g/dL Hct 40.7 (38.3-50.1) % MCV 85.5 (80.8-98.7) fL MCH 28.4 (27.0-33.3) pg MCHC 33.2 (28.7-35.3) g/dL RDW 13.4 (12.4-15.0) % Plt Count 178 (117-477) x10(3)uL MPV 7.8 (6.7-11.0) fL Add Manual Diff Yes Neutrophils % (Manual) 89 H (46-82) % Lymphocytes % (Manual) 7 L (13-37) % Monocytes % (Manual) 4 (4-12) % Sodium (135-145) mmol/L Potassium (3.5-5.3) mmol/L Chloride (100-110) mmol/L Carbon Dioxide (21-32) mmol/L BUN (7-18) mg/dL Creatinine (0.70-1.30) mg/dL Est Cr Clr Drug Dosing Estimated GFR (MDRD) (>60) BUN/Creatinine Ratio (9-20) Glucose (80-116) mg/dL Lactic Acid (0.4-2.0) mmol/L Calcium (8.6-10.2) mg/dL C-Reactive Protein (0.5-0.9) mg/dL Urine Color Yellow (YELLOW) Urine Appearance Slightly cloudy (CLEAR) Urine pH 5.0 (5.0-6.5) Ur Specific [place] 1.020 (1.010-1.025) Urine Protein Negative (NEGATIVE) mg/dL Urine Glucose (UA) Normal (NORMAL) mg/dL Urine Ketones Negative (NEGATIVE) mg/dL Urine Occult Blood Negative (NEGATIVE) Urine Nitrite Negative (NEGATIVE) Urine Bilirubin Negative (NEGATIVE) Urine Urobilinogen Normal (NEGATIVE) mg/dL Ur Leukocyte Esterase Negative (NEGATIVE) Urine WBC 0-5 (0-5) Ur Squamous Epith Cells Few H (NS,R,O) Urine Bacteria Few H (NS) SARS-CoV-2 RNA (KHOA) Negative (NEGATIVE) 12/08/20 12/08/20 12/08/20 Range/Units 06:40 06:40 06:40 WBC (3.2-10.1) x10-3/uL RBC (3.90-5.90) x10(6)uL Hgb (12.9-17.7) g/dL Hct (38.3-50.1) % MCV (80.8-98.7) fL MCH (27.0-33.3) pg MCHC (28.7-35.3) g/dL RDW (12.4-15.0) % Plt Count (117-477) x10(3)uL MPV (6.7-11.0) fL Add Manual Diff Neutrophils % (Manual) (46-82) % Lymphocytes % (Manual) (13-37) % Monocytes % (Manual) (4-12) % Sodium 142 (135-145) mmol/L Potassium 3.5 (3.5-5.3) mmol/L Chloride 107 (100-110) mmol/L Carbon Dioxide 28 (21-32) mmol/L BUN 9 (7-18) mg/dL Creatinine 1.0 (0.70-1.30) mg/dL Est Cr Clr Drug Dosing 87.67 Estimated GFR (MDRD) > 60 (>60) BUN/Creatinine Ratio 9.0 (9-20) Glucose 106 (80-116) mg/dL Lactic Acid 1.0 (0.4-2.0) mmol/L Calcium 9.0 (8.6-10.2) mg/dL C-Reactive Protein 20.4 H* (0.5-0.9) mg/dL Urine Color (YELLOW) Urine Appearance (CLEAR) Urine pH (5.0-6.5) Ur Specific [place] (1.010-1.025) Urine Protein (NEGATIVE) mg/dL Urine Glucose (UA) (NORMAL) mg/dL Urine Ketones (NEGATIVE) mg/dL Urine Occult Blood (NEGATIVE) Urine Nitrite (NEGATIVE) Urine Bilirubin (NEGATIVE) Urine Urobilinogen (NEGATIVE) mg/dL Ur Leukocyte Esterase (NEGATIVE) Urine WBC (0-5) Ur Squamous Epith Cells (NS,R,O) Urine Bacteria (NS) SARS-CoV-2 RNA (KHOA) (NEGATIVE) Med Orders - Current: Current Medications Acetaminophen (Acetaminophen 325 Mg Tab) 650 mg PO Q4H PRN PRN Reason: Pain (Mild 1-3)/fever Last Admin: 12/07/20 14:35 Dose: 650 mg Documented by: Aspirin (Aspirin 81 Mg Tab.Ec) 81 mg PO DAILY [facility] Lactated Ringer's (Ringers, Lactated) 1,000 mls @ 250 mls/hr IV ASDIRECTED [facility] Last Admin: 12/08/20 05:29 Dose: 250 mls/hr Documented by: Metronidazole (Metronidazole 500 Mg Tab) 500 mg PO Q8H [facility] Last Admin: 12/08/20 03:23 Dose: 500 mg Documented by: Ondansetron HCl (Ondansetron 4 Mg/2 Ml Sdv) 4 mg IVPUSH Q6H PRN PRN Reason: Nausea/Vomiting Last Admin: 12/08/20 03:23 Dose: 4 mg Documented by: Pantoprazole Sodium (Pantoprazole 40 Mg Tab.Cr) 40 mg PO DAILY@0600 [facility] Last Admin: 12/08/20 05:29 Dose: 40 mg Documented by: Sodium Chloride (Sodium Chloride 0.9% 10 Ml Syringe) 10 ml FLUSH ASDIRECTED PRN PRN Reason: Keep Vein Open Vancomycin HCl (Vancomycin 125 Mg Cap) 125 mg PO QID [facility] Last Admin: 12/07/20 20:16 Dose: 125 mg Documented by: Discontinued Medications Diatrizoate Meglum/Diatrizoate Sod (Diatrizoate Meglumine/Diatrizoate Sodium 37% 30 Ml Bottle) 30 ml PO ASDIRECTED ONE Stop: 12/08/20 06:51 Lactated Ringer's (Ringers, Lactated) 1,000 mls @ 1,000 mls/hr IV BOLUS ONE Stop: 12/07/20 11:39 Last Admin: 12/07/20 10:49 Dose: 1,000 mls/hr Documented by: Influenza Virus Vaccine (Flu Vacc [id number](6mos Up)/Pf 60 Mcg/0.5 Ml Syringe) 60 mcg IM .ONCE ONE Stop: 12/08/20 07:46 Metronidazole (Metronidazole 500 Mg Tab) 500 mg PO ONETIME ONE Stop: 12/07/20 11:06 Last Admin: 12/07/20 12:32 Dose: Not Given Documented by: Vancomycin HCl (Vancomycin 125 Mg Cap) 125 mg PO NOW STA Stop: 12/07/20 11:05 Last Admin: 12/07/20 12:33 Dose: Not Given Documented by: - Exam General: Alert Neck: Supple GI/Abdominal Exam: Normal Bowel Sounds, Soft - Patient Data Lab Results Last 24 hrs: Laboratory Results - last 24 hr 12/07/20 12/07/20 12/07/20 Range/Units 10:14 10:14 10:14 WBC 26.2 H (3.2-10.1) x10-3/uL RBC 4.97 (3.90-5.90) x10(6)uL Hgb 14.2 (12.9-17.7) g/dL Hct 42.6 (38.3-50.1) % MCV 85.7 (80.8-98.7) fL MCH 28.5 (27.0-33.3) pg MCHC 33.2 (28.7-35.3) g/dL RDW 13.5 (12.4-15.0) % Plt Count 220 (117-477) x10(3)uL MPV (6.7-11.0) fL Add Manual Diff Neutrophils % (Manual) (46-82) % Lymphocytes % (Manual) (13-37) % Monocytes % (Manual) (4-12) % Sodium 140 (135-145) mmol/L Potassium 3.9 (3.5-5.3) mmol/L Chloride 105 (100-110) mmol/L Carbon Dioxide 25 (21-32) mmol/L BUN 15 (7-18) mg/dL Creatinine 1.0 (0.70-1.30) mg/dL Est Cr Clr Drug Dosing TNP Estimated GFR (MDRD) > 60 (>60) BUN/Creatinine Ratio 15.0 (9-20) Glucose 119 H (80-116) mg/dL Lactic Acid 1.0 (0.4-2.0) mmol/L Calcium 8.8 (8.6-10.2) mg/dL C-Reactive Protein (0.5-0.9) mg/dL Urine Color (YELLOW) Urine Appearance (CLEAR) Urine pH (5.0-6.5) Ur Specific [place] (1.010-1.025) Urine Protein (NEGATIVE) mg/dL Urine Glucose (UA) (NORMAL) mg/dL Urine Ketones (NEGATIVE) mg/dL Urine Occult Blood (NEGATIVE) Urine Nitrite (NEGATIVE) Urine Bilirubin (NEGATIVE) Urine Urobilinogen (NEGATIVE) mg/dL Ur Leukocyte Esterase (NEGATIVE) Urine WBC (0-5) Ur Squamous Epith Cells (NS,R,O) Urine Bacteria (NS) SARS-CoV-2 RNA (KHOA) (NEGATIVE) 12/07/20 12/07/20 12/08/20 Range/Units 10:40 12:00 06:40 WBC 15.5 H (3.2-10.1) x10-3/uL RBC 4.77 (3.90-5.90) x10(6)uL Hgb 13.5 (12.9-17.7) g/dL Hct 40.7 (38.3-50.1) % MCV 85.5 (80.8-98.7) fL MCH 28.4 (27.0-33.3) pg MCHC 33.2 (28.7-35.3) g/dL RDW 13.4 (12.4-15.0) % Plt Count 178 (117-477) x10(3)uL MPV 7.8 (6.7-11.0) fL Add Manual Diff Yes Neutrophils % (Manual) 89 H (46-82) % Lymphocytes % (Manual) 7 L (13-37) % Monocytes % (Manual) 4 (4-12) % Sodium (135-145) mmol/L Potassium (3.5-5.3) mmol/L Chloride (100-110) mmol/L Carbon Dioxide (21-32) mmol/L BUN (7-18) mg/dL Creatinine (0.70-1.30) mg/dL Est Cr Clr Drug Dosing Estimated GFR (MDRD) (>60) BUN/Creatinine Ratio (9-20) Glucose (80-116) mg/dL Lactic Acid (0.4-2.0) mmol/L Calcium (8.6-10.2) mg/dL C-Reactive Protein (0.5-0.9) mg/dL Urine Color Yellow (YELLOW) Urine Appearance Slightly cloudy (CLEAR) Urine pH 5.0 (5.0-6.5) Ur Specific [place] 1.020 (1.010-1.025) Urine Protein Negative (NEGATIVE) mg/dL Urine Glucose (UA) Normal (NORMAL) mg/dL Urine Ketones Negative (NEGATIVE) mg/dL Urine Occult Blood Negative (NEGATIVE) Urine Nitrite Negative (NEGATIVE) Urine Bilirubin Negative (NEGATIVE) Urine Urobilinogen Normal (NEGATIVE) mg/dL Ur Leukocyte Esterase Negative (NEGATIVE) Urine WBC 0-5 (0-5) Ur Squamous Epith Cells Few H (NS,R,O) Urine Bacteria Few H (NS) SARS-CoV-2 RNA (KHOA) Negative (NEGATIVE) 12/08/20 12/08/20 12/08/20 Range/Units 06:40 06:40 06:40 WBC (3.2-10.1) x10-3/uL RBC (3.90-5.90) x10(6)uL Hgb (12.9-17.7) g/dL Hct (38.3-50.1) % MCV (80.8-98.7) fL MCH (27.0-33.3) pg MCHC (28.7-35.3) g/dL RDW (12.4-15.0) % Plt Count (117-477) x10(3)uL MPV (6.7-11.0) fL Add Manual Diff Neutrophils % (Manual) (46-82) % Lymphocytes % (Manual) (13-37) % Monocytes % (Manual) (4-12) % Sodium 142 (135-145) mmol/L Potassium 3.5 (3.5-5.3) mmol/L Chloride 107 (100-110) mmol/L Carbon Dioxide 28 (21-32) mmol/L BUN 9 (7-18) mg/dL Creatinine 1.0 (0.70-1.30) mg/dL Est Cr Clr Drug Dosing 87.67 Estimated GFR (MDRD) > 60 (>60) BUN/Creatinine Ratio 9.0 (9-20) Glucose 106 (80-116) mg/dL Lactic Acid 1.0 (0.4-2.0) mmol/L Calcium 9.0 (8.6-10.2) mg/dL C-Reactive Protein 20.4 H* (0.5-0.9) mg/dL Urine Color (YELLOW) Urine Appearance (CLEAR) Urine pH (5.0-6.5) Ur Specific [place] (1.010-1.025) Urine Protein (NEGATIVE) mg/dL Urine Glucose (UA) (NORMAL) mg/dL Urine Ketones (NEGATIVE) mg/dL Urine Occult Blood (NEGATIVE) Urine Nitrite (NEGATIVE) Urine Bilirubin (NEGATIVE) Urine Urobilinogen (NEGATIVE) mg/dL Ur Leukocyte Esterase (NEGATIVE) Urine WBC (0-5) Ur Squamous Epith Cells (NS,R,O) Urine Bacteria (NS) SARS-CoV-2 RNA (KHOA) (NEGATIVE) Result Diagrams: 12/08/20 06:40 12/08/20 06:40 Sepsis Event Note - Evaluation Sepsis Screening Result: Sepsis Risk - Focused Exam Vital Signs: Vital Signs Temp Pulse Resp BP Pulse Ox 12/08/20 03:28 97.8 F 90 18 125/76 96 - Problem List & Annotations (1) C. difficile diarrhea SNOMED Code(s): 3263090579073 Code(s): A04.72 - ENTEROCOLITIS D/T CLOSTRIDIUM DIFFICILE, NOT SPCF RECUR Status: Acute Current Visit: Yes (2) Esophageal reflux SNOMED Code(s): 444875150 Code(s): K21.9 - GASTRO-ESOPHAGEAL REFLUX DISEASE WITHOUT ESOPHAGITIS Status: Chronic Current Visit: No Qualifiers: Esophagitis presence: without esophagitis Qualified Code(s): K21.9 - Gastro-esophageal reflux disease without esophagitis (3) Hypertension SNOMED Code(s): 11718050 Code(s): I10 - ESSENTIAL (PRIMARY) HYPERTENSION Status: Chronic Current Visit: No Qualifiers: Hypertension type: primary hypertension Qualified Code(s): I10 - Essential (primary) hypertension - Problem List Review Problem List Initiated/Reviewed/Updated: Yes - My Orders Last 24 Hours: My Active Orders 12/07/20 14:03 Vaccine to be Administered/Admin Charge [RC] ASDIRECTED 12/07/20 17:00 Ondansetron [Zofran] 4 mg IVPUSH Q6H PRN 12/07/20 17:01 Weight, Daily [Height and Weight] [RC] 12/08/20 Abdomen Pelvis wo Cont [CT] Routine - Plan Plan:: Awaiting CT with contrast this morning,looking for toxic megacolon,or any complications. Continue Flagyl/Vanco.Repeat Labs in AM
[2020-12-08] MEDS: Vancomycin 125 MG Cap PO SCH ×4 (09:32→21:47)
[2020-12-08] MEDS: Aspirin 81 MG Tab.EC PO SCH (09:32)
[2020-12-08] MEDS: Lactobacillus Rhamnosus GG (Probiotic) Cap PO SCH (10:22)
--- NOTE | 2020-12-08 13:24 | CT ---
CT ABDOMEN AND PELVIS WITHOUT IV CONTRAST, WITH ORAL CONTRAST INDICATION: Colitis. TECHNIQUE: Spiral 3.75 mm axial sections were obtained through the abdomen and pelvis with oral contrast only with sagittal and coronal reconstructions 12/08/20 and compared with 11/21/20. Total exam DLP was 1503.94 mGy/cm. FINDINGS: The lower lung anderson and pleural spaces visualized appeared normal. The heart was not enlarged. No pericardial effusion was noted. The liver, gallbladder, adrenal glands, pancreas and kidneys were normal except for question of some very minimal renal cortical scarring mostly on the right. A very tiny cyst was also noted in the lower pole of the left kidney on the previous study but is not well seen due to lack of IV contrast on the current study. There is again no retroperitoneal mass. The appendix appears normal. No evidence of bowel obstruction or free air was seen. However, there is a marked change in the colon appearance, which now shows evidence of marked thickening of the wall throughout the colon with the thickening of the wall becoming less severe at the sigmoid and rectum. Diverticulosis in the sigmoid area is again noted. This diffuse thickening of the wall of the colon is likely on the basis of colitis, possibly infectious - correlate clinically. There is pericolonic fat stranding that is now seen, which was not present on the previous examination likely representing inflammatory process extending into the pericolonic fat. There are some arterial calcifications again noted. Mild thickening of the wall of the urinary bladder is suggested. Degenerative changes of disc disease are noted in the thoracolumbar spine with disc disease also suggested at L4-5. IMPRESSION: Findings are compatible with diffuse colitis extending from the cecum where fat stranding is most prominent to the sigmoid colon with decreased thickening of the lining in the distal sigmoid, rectosigmoid and rectum. Diffuse colitis is suggested possibly on the basis of infectious disease - correlate clinically. Pericolonic fat stranding suggests additional inflammatory process in that area surrounding the colon up to the level of the mid sigmoid colon. Report was called in part to Dr. Bunch's voicemail at 1128 hours 12/08/20. [facility]
[2020-12-09] MEDS: metroNIDAZOLE 500 MG Tab PO SCH (03:49)
[2020-12-09] MEDS: Lactated Ringers 1,000 ML IV SCH ×2 (03:49→08:05)
[2020-12-09] MEDS: Pantoprazole 40 MG Tab.CR PO SCH (05:37)
[2020-12-09] MEDS: Vancomycin 125 MG Cap PO SCH (08:00)
[2020-12-09] MEDS: Aspirin 81 MG Tab.EC PO SCH (08:00)
[2020-12-09] MEDS: Lactobacillus Rhamnosus GG (Probiotic) Cap PO SCH (08:01)
--- NOTE | 2020-12-09 08:55 | PCM.PN ---
- General Info Date of Service: 12/09/20 Admission Dx/Problem (Free Text): She states she is feeling really good today. He has has not a fever for over 24 hours. He has no abdominal pain and he says his stools starting to form. His energy is better. He is urinating a lot but he is on the lateral IV fluids. - Patient Data Vitals - Most Recent: Last Vital Signs Temp 97.3 F 12/09/20 08:00 Pulse 75 12/09/20 08:00 Resp 18 12/09/20 08:00 BP 121/72 12/09/20 08:00 Pulse Ox 97 12/09/20 08:00 Orthostatic Blood Pressure [ 121/77 Standing] Orthostatic Blood Pressure [ 119/76 Sitting] Orthostatic Blood Pressure [ 126/73 Supine] Weight - Most Recent: 217 lb I&O - Last 24 Hours: Intake & Output 12/08/20 12/09/20 12/09/20 22:59 06:59 14:59 Intake Total 1000 1402 Balance 1000 1402 Lab Results Last 24 Hours: Laboratory Results - last 24 hr 12/09/20 12/09/20 12/09/20 Range/Units 06:03 06:03 06:03 WBC 7.4 (3.2-10.1) x10-3/uL RBC 4.24 (3.90-5.90) x10(6)uL Hgb 12.2 L (12.9-17.7) g/dL Hct 36.3 L (38.3-50.1) % MCV 85.6 (80.8-98.7) fL MCH 28.7 (27.0-33.3) pg MCHC 33.5 (28.7-35.3) g/dL RDW 13.5 (12.4-15.0) % Plt Count 138 (117-477) x10(3)uL MPV 8.0 (6.7-11.0) fL Neut % (Auto) 79.4 H (40.3-71.8) % Lymph % (Auto) 7.7 L (15.8-45.3) % [place] % (Auto) 10.8 (5.5-15.2) % Eos % (Auto) 1.8 (0.1-6.8) % Baso % (Auto) 0.3 (0.3-3.8) % Neut # (Auto) 5.9 (1.7-6.9) x10-3/uL Lymph # (Auto) 0.6 (0.5-4.5) x10-3/uL [place] # (Auto) 0.8 (0.0-1.2) x10-3/uL Eos # (Auto) 0.1 (0.0-0.6) x10-3/uL Baso # (Auto) 0.0 (0.0-0.3) x10-3/uL Sodium 144 (135-145) mmol/L Potassium 3.5 (3.5-5.3) mmol/L Chloride 109 (100-110) mmol/L Carbon Dioxide 30 (21-32) mmol/L BUN 7 (7-18) mg/dL Creatinine 0.8 (0.70-1.30) mg/dL Est Cr Clr Drug Dosing 109.59 mL/min Estimated GFR (MDRD) > 60 (>60) BUN/Creatinine Ratio 8.8 L (9-20) Glucose 95 (80-116) mg/dL Calcium 8.3 L (8.6-10.2) mg/dL Total Bilirubin 0.4 (0.1-1.3) mg/dL AST 13 D (5-25) IU/L ALT 21 D (12-36) U/L Alkaline Phosphatase 35 L (56-112) IU/L C-Reactive Protein 11.1 H* (0.5-0.9) mg/dL Total Protein 5.4 L (6.0-8.0) g/dL Albumin 2.5 L (3.2-4.6) g/dL Globulin 2.9 g/dL Albumin/Globulin Ratio 0.9 [place] Results Last 24 Hours: Microbiology 12/07/20 11:35 Aerobic Blood Culture - Preliminary Blood - Venous NO GROWTH AFTER 1 DAY Anaerobic Blood Culture - Preliminary NO GROWTH AFTER 1 DAY 12/07/20 10:14 Aerobic Blood Culture - Preliminary Blood - Venous NO GROWTH AFTER 1 DAY Anaerobic Blood Culture - Preliminary NO GROWTH AFTER 1 DAY Med Orders - Current: Current Medications Acetaminophen (Acetaminophen 325 Mg Tab) 650 mg PO Q4H PRN PRN Reason: Pain (Mild 1-3)/fever Last Admin: 12/07/20 14:35 Dose: 650 mg Documented by: Aspirin (Aspirin 81 Mg Tab.Ec) 81 mg PO DAILY [facility] Last Admin: 12/09/20 08:00 Dose: 81 mg Documented by: Lactated Ringer's (Ringers, Lactated) 1,000 mls @ 250 mls/hr IV ASDIRECTED [facility] Last Admin: 12/09/20 08:05 Dose: 250 mls/hr Documented by: Lactobacillus Rhamnosus (Lactobacillus Rhamnosus Gg (Probiotic) Cap) 1 cap PO DAILY [facility] Last Admin: 12/09/20 08:01 Dose: 1 cap Documented by: Metronidazole (Metronidazole 500 Mg Tab) 500 mg PO Q8H [facility] Last Admin: 12/09/20 03:49 Dose: 500 mg Documented by: Ondansetron HCl (Ondansetron 4 Mg/2 Ml Sdv) 4 mg IVPUSH Q6H PRN PRN Reason: Nausea/Vomiting Last Admin: 12/08/20 03:23 Dose: 4 mg Documented by: Pantoprazole Sodium (Pantoprazole 40 Mg Tab.Cr) 40 mg PO DAILY@0600 [facility] Last Admin: 12/09/20 05:37 Dose: 40 mg Documented by: Sodium Chloride (Sodium Chloride 0.9% 10 Ml Syringe) 10 ml FLUSH ASDIRECTED PRN PRN Reason: Keep Vein Open Vancomycin HCl (Vancomycin 125 Mg Cap) 125 mg PO QID [facility] Last Admin: 12/09/20 08:00 Dose: 125 mg Documented by: Discontinued Medications Diatrizoate Meglum/Diatrizoate Sod (Diatrizoate Meglumine/Diatrizoate Sodium 37% 30 Ml Bottle) 30 ml PO ASDIRECTED ONE Stop: 12/08/20 06:51 Last Admin: 12/08/20 09:17 Dose: 30 ml Documented by: Lactated Ringer's (Ringers, Lactated) 1,000 mls @ 1,000 mls/hr IV BOLUS ONE Stop: 12/07/20 11:39 Last Admin: 12/07/20 10:49 Dose: 1,000 mls/hr Documented by: Influenza Virus Vaccine (Flu Vacc [id number](6mos Up)/Pf 60 Mcg/0.5 Ml Syringe) 60 mcg IM .ONCE ONE Stop: 12/08/20 07:46 Metronidazole (Metronidazole 500 Mg Tab) 500 mg PO ONETIME ONE Stop: 12/07/20 11:06 Last Admin: 12/07/20 12:32 Dose: Not Given Documented by: Vancomycin HCl (Vancomycin 125 Mg Cap) 125 mg PO NOW STA Stop: 12/07/20 11:05 Last Admin: 12/07/20 12:33 Dose: Not Given Documented by: - Exam General: Alert, Oriented Lungs: Normal Respiratory Effort GI/Abdominal Exam: Normal Bowel Sounds, Soft, Non-Tender, No Distention - Patient Data Lab Results Last 24 hrs: Laboratory Results - last 24 hr 12/09/20 12/09/20 12/09/20 Range/Units 06:03 06:03 06:03 WBC 7.4 (3.2-10.1) x10-3/uL RBC 4.24 (3.90-5.90) x10(6)uL Hgb 12.2 L (12.9-17.7) g/dL Hct 36.3 L (38.3-50.1) % MCV 85.6 (80.8-98.7) fL MCH 28.7 (27.0-33.3) pg MCHC 33.5 (28.7-35.3) g/dL RDW 13.5 (12.4-15.0) % Plt Count 138 (117-477) x10(3)uL MPV 8.0 (6.7-11.0) fL Neut % (Auto) 79.4 H (40.3-71.8) % Lymph % (Auto) 7.7 L (15.8-45.3) % [place] % (Auto) 10.8 (5.5-15.2) % Eos % (Auto) 1.8 (0.1-6.8) % Baso % (Auto) 0.3 (0.3-3.8) % Neut # (Auto) 5.9 (1.7-6.9) x10-3/uL Lymph # (Auto) 0.6 (0.5-4.5) x10-3/uL [place] # (Auto) 0.8 (0.0-1.2) x10-3/uL Eos # (Auto) 0.1 (0.0-0.6) x10-3/uL Baso # (Auto) 0.0 (0.0-0.3) x10-3/uL Sodium 144 (135-145) mmol/L Potassium 3.5 (3.5-5.3) mmol/L Chloride 109 (100-110) mmol/L Carbon Dioxide 30 (21-32) mmol/L BUN 7 (7-18) mg/dL Creatinine 0.8 (0.70-1.30) mg/dL Est Cr Clr Drug Dosing 109.59 mL/min Estimated GFR (MDRD) > 60 (>60) BUN/Creatinine Ratio 8.8 L (9-20) Glucose 95 (80-116) mg/dL Calcium 8.3 L (8.6-10.2) mg/dL Total Bilirubin 0.4 (0.1-1.3) mg/dL AST 13 D (5-25) IU/L ALT 21 D (12-36) U/L Alkaline Phosphatase 35 L (56-112) IU/L C-Reactive Protein 11.1 H* (0.5-0.9) mg/dL Total Protein 5.4 L (6.0-8.0) g/dL Albumin 2.5 L (3.2-4.6) g/dL Globulin 2.9 g/dL Albumin/Globulin Ratio 0.9 Result Diagrams: 12/09/20 06:03 12/09/20 06:03 [place] Results Last 24 hrs: Microbiology 12/07/20 11:35 Aerobic Blood Culture - Preliminary Blood - Venous NO GROWTH AFTER 1 DAY Anaerobic Blood Culture - Preliminary NO GROWTH AFTER 1 DAY 12/07/20 10:14 Aerobic Blood Culture - Preliminary Blood - Venous NO GROWTH AFTER 1 DAY Anaerobic Blood Culture - Preliminary NO GROWTH AFTER 1 DAY Sepsis Event Note - Evaluation Sepsis Screening Result: No Definite Risk - Focused Exam Vital Signs: Vital Signs Temp Pulse Resp BP Pulse Ox 12/09/20 08:00 97.3 F 75 18 121/72 97 12/09/20 03:58 97.9 F 81 14 131/76 98 - Problem List & Annotations (1) C. difficile diarrhea SNOMED Code(s): 4127463849002 Code(s): A04.72 - ENTEROCOLITIS D/T CLOSTRIDIUM DIFFICILE, NOT SPCF RECUR Status: Acute Current Visit: Yes (2) Dehydration SNOMED Code(s): 88187855 Code(s): E86.0 - DEHYDRATION Status: Acute Current Visit: No (3) Diarrhea SNOMED Code(s): 13291482 Code(s): R19.7 - DIARRHEA, UNSPECIFIED Status: Acute Current Visit: No - Problem List Review Problem List Initiated/Reviewed/Updated: Yes - Plan Plan:: . And metronidazol1 Review[address] scan. 2. Discharged to home on 3 weeks of vancomycin
--- NOTE | 2020-12-09 09:02 | PCM.DCSUM1 ---
Discharge Summary - Hospital Course Free Text/Narrative:: Patient was placed on vancomycin, IV fluids and metronidazole. His initial white count was 26,000 by day 2 it was down to 7. C-reactive protein responded appropriately. Came down. Patient states his fever came down and is eating and drinking and stools are formed now. Was diarrhea every 2 hours. Patient did well. A CT scan showed pancolitis most likely infectious cause. C. difficile was not repeated because it had been done previously in the section. We'll discharge him on vancomycin and metronidazole for 3 weeks. Brief History: Ganga was admitted this morning because of fever and diarrhea. He was recent discharged, 11/23/21, for C. difficile colitis on oral vancomycin. He was doing better until yesterday night when he developed symptoms. He feels poorly, weak nauseous. He denies abdominal pain Diagnosis: Stroke: No - Discharge Data Discharge Date: 12/09/20 Discharge Disposition: Home, Self-Care 01 Condition: Good - Referral to Home Health Primary Care Physician: Tremaine Higgins MD - Discharge Diagnosis/Problem(s) (1) C. difficile diarrhea SNOMED Code(s): 9185861433744 ICD Code: A04.72 - ENTEROCOLITIS D/T CLOSTRIDIUM DIFFICILE, NOT SPCF RECUR Status: Acute Current Visit: Yes (2) Dehydration SNOMED Code(s): 53015938 ICD Code: E86.0 - DEHYDRATION Status: Acute Current Visit: No (3) Diarrhea SNOMED Code(s): 31980057 ICD Code: R19.7 - DIARRHEA, UNSPECIFIED Status: Acute Current Visit: No (4) Esophageal reflux SNOMED Code(s): 078504464 ICD Code: K21.9 - GASTRO-ESOPHAGEAL REFLUX DISEASE WITHOUT ESOPHAGITIS Status: Chronic Current Visit: No Qualifiers: Esophagitis presence: without esophagitis Qualified Code(s): K21.9 - Gastro-esophageal reflux disease without esophagitis (5) Hypertension SNOMED Code(s): 43808492 ICD Code: I10 - ESSENTIAL (PRIMARY) HYPERTENSION Status: Chronic Current Visit: No Qualifiers: Hypertension type: primary hypertension Qualified Code(s): I10 - Essential (primary) hypertension - Patient Instructions Diet: Regular Diet as Tolerated Activity: As Tolerated Driving: May Drive Today Showering/Bathing: May Shower Notify Provider of: Fever, Increased Pain, Nausea and/or Vomiting Other/Special Instructions: 1. Recheck in [address] Higgins - Discharge Plan *PRESCRIPTION DRUG MONITORING PROGRAM REVIEWED*: Not Applicable *COPY OF PRESCRIPTION DRUG MONITORING REPORT IN PATIENT PRANAV: Not Applicable Prescriptions/Med Rec: metroNIDAZOLE [Flagyl] 500 mg PO TID #63 tablet Vancomycin [Vancocin 125 MG Capsule] 125 mg PO QID #64 cap Home Medications: Home Meds amLODIPine Besylate/Benazepril [Amlodipine-Benazepril 5-10 MG] 1 tab PO DAILY 01/20/17 [History] atorvaSTATin [Lipitor] 10 mg PO DAILY 01/20/17 [History] Aspirin [Adult Low Dose Aspirin EC] 81 mg PO DAILY 05/31/17 [History] Acetaminophen [Tylenol] 650 mg PO Q4H PRN tablet 11/23/20 [Rx] Lactobacillus Rhamnosus GG [Culturelle] 1 cap PO DAILY cap 12/09/20 [Rx] Vancomycin [Vancocin 125 MG Capsule] 125 mg PO QID #64 cap 12/09/20 [Rx] metroNIDAZOLE [Flagyl] 500 mg PO TID #63 tablet 12/09/20 [Rx] Patient Handouts: Clostridioides Difficile Infection, [id number], Fall Prevention in Hospitals, Adult Forms: ED Department Discharge Referrals: Tremaine Higgins MD [Primary Care Provider] - - Discharge Summary/Plan Comment DC Time >30 min.: No Total # of Minutes for Discharge Time: NA - Patient Data Vitals - Most Recent: Last Vital Signs Temp 97.3 F 12/09/20 08:00 Pulse 75 12/09/20 08:00 Resp 18 12/09/20 08:00 BP 121/72 12/09/20 08:00 Pulse Ox 97 12/09/20 08:00 Orthostatic Blood Pressure [ 121/77 Standing] Orthostatic Blood Pressure [ 119/76 Sitting] Orthostatic Blood Pressure [ 126/73 Supine] Weight - Most Recent: 217 lb I&O - Last 24 hours: Intake & Output 12/08/20 12/09/20 12/09/20 22:59 06:59 14:59 Intake Total 1000 1402 Balance 1000 1402 Lab Results - Last 24 hrs: Laboratory Results - last 24 hr 12/09/20 12/09/20 12/09/20 Range/Units 06:03 06:03 06:03 WBC 7.4 (3.2-10.1) x10-3/uL RBC 4.24 (3.90-5.90) x10(6)uL Hgb 12.2 L (12.9-17.7) g/dL Hct 36.3 L (38.3-50.1) % MCV 85.6 (80.8-98.7) fL MCH 28.7 (27.0-33.3) pg MCHC 33.5 (28.7-35.3) g/dL RDW 13.5 (12.4-15.0) % Plt Count 138 (117-477) x10(3)uL MPV 8.0 (6.7-11.0) fL Neut % (Auto) 79.4 H (40.3-71.8) % Lymph % (Auto) 7.7 L (15.8-45.3) % [place] % (Auto) 10.8 (5.5-15.2) % Eos % (Auto) 1.8 (0.1-6.8) % Baso % (Auto) 0.3 (0.3-3.8) % Neut # (Auto) 5.9 (1.7-6.9) x10-3/uL Lymph # (Auto) 0.6 (0.5-4.5) x10-3/uL [place] # (Auto) 0.8 (0.0-1.2) x10-3/uL Eos # (Auto) 0.1 (0.0-0.6) x10-3/uL Baso # (Auto) 0.0 (0.0-0.3) x10-3/uL Sodium 144 (135-145) mmol/L Potassium 3.5 (3.5-5.3) mmol/L Chloride 109 (100-110) mmol/L Carbon Dioxide 30 (21-32) mmol/L BUN 7 (7-18) mg/dL Creatinine 0.8 (0.70-1.30) mg/dL Est Cr Clr Drug Dosing 109.59 mL/min Estimated GFR (MDRD) > 60 (>60) BUN/Creatinine Ratio 8.8 L (9-20) Glucose 95 (80-116) mg/dL Calcium 8.3 L (8.6-10.2) mg/dL Total Bilirubin 0.4 (0.1-1.3) mg/dL AST 13 D (5-25) IU/L ALT 21 D (12-36) U/L Alkaline Phosphatase 35 L (56-112) IU/L C-Reactive Protein 11.1 H* (0.5-0.9) mg/dL Total Protein 5.4 L (6.0-8.0) g/dL Albumin 2.5 L (3.2-4.6) g/dL Globulin 2.9 g/dL Albumin/Globulin Ratio 0.9 CEDRIC Results - Last 24 hrs: Microbiology 12/07/20 11:35 Aerobic Blood Culture - Preliminary Blood - Venous NO GROWTH AFTER 1 DAY Anaerobic Blood Culture - Preliminary NO GROWTH AFTER 1 DAY 12/07/20 10:14 Aerobic Blood Culture - Preliminary Blood - Venous NO GROWTH AFTER 1 DAY Anaerobic Blood Culture - Preliminary NO GROWTH AFTER 1 DAY Med Orders - Current: Current Medications Acetaminophen (Acetaminophen 325 Mg Tab) 650 mg PO Q4H PRN PRN Reason: Pain (Mild 1-3)/fever Last Admin: 12/07/20 14:35 Dose: 650 mg Documented by: Aspirin (Aspirin 81 Mg Tab.Ec) 81 mg PO DAILY [facility] Last Admin: 12/09/20 08:00 Dose: 81 mg Documented by: Lactated Ringer's (Ringers, Lactated) 1,000 mls @ 250 mls/hr IV ASDIRECTED [facility] Last Admin: 12/09/20 08:05 Dose: 250 mls/hr Documented by: Lactobacillus Rhamnosus (Lactobacillus Rhamnosus Gg (Probiotic) Cap) 1 cap PO DAILY [facility] Last Admin: 12/09/20 08:01 Dose: 1 cap Documented by: Metronidazole (Metronidazole 500 Mg Tab) 500 mg PO Q8H [facility] Last Admin: 12/09/20 03:49 Dose: 500 mg Documented by: Ondansetron HCl (Ondansetron 4 Mg/2 Ml Sdv) 4 mg IVPUSH Q6H PRN PRN Reason: Nausea/Vomiting Last Admin: 12/08/20 03:23 Dose: 4 mg Documented by: Pantoprazole Sodium (Pantoprazole 40 Mg Tab.Cr) 40 mg PO DAILY@0600 [facility] Last Admin: 12/09/20 05:37 Dose: 40 mg Documented by: Sodium Chloride (Sodium Chloride 0.9% 10 Ml Syringe) 10 ml FLUSH ASDIRECTED PRN PRN Reason: Keep Vein Open Vancomycin HCl (Vancomycin 125 Mg Cap) 125 mg PO QID HIEN Last Admin: 12/09/20 08:00 Dose: 125 mg Documented by: Discontinued Medications Diatrizoate Meglum/Diatrizoate Sod (Diatrizoate Meglumine/Diatrizoate Sodium 37% 30 Ml Bottle) 30 ml PO ASDIRECTED ONE Stop: 12/08/20 06:51 Last Admin: 12/08/20 09:17 Dose: 30 ml Documented by: Lactated Ringer's (Ringers, Lactated) 1,000 mls @ 1,000 mls/hr IV BOLUS ONE Stop: 12/07/20 11:39 Last Admin: 12/07/20 10:49 Dose: 1,000 mls/hr Documented by: Influenza Virus Vaccine (Flu Vacc [id number](6mos Up)/Pf 60 Mcg/0.5 Ml Syringe) 60 mcg IM .ONCE ONE Stop: 12/08/20 07:46 Metronidazole (Metronidazole 500 Mg Tab) 500 mg PO ONETIME ONE Stop: 12/07/20 11:06 Last Admin: 12/07/20 12:32 Dose: Not Given Documented by: Vancomycin HCl (Vancomycin 125 Mg Cap) 125 mg PO NOW STA Stop: 12/07/20 11:05 Last Admin: 12/07/20 12:33 Dose: Not Given Documented by:
== END 2020-12-09 10:50 | disposition home or self-care (01) | DRG 248 ==
LOC: FB.ED 09:47 → FB.MS 11:29
PROVIDERS: ADMIT Emergency Medicine; ATTEND Family Medicine
DX: A04.72 Enterocolitis due to Clostridium difficile, not specified as recurrent (principal); E86.0 Dehydration; K21.9 Gastro-esophageal reflux disease without esophagitis; I10 Essential (primary) hypertension; E78.00 Pure hypercholesterolemia, unspecified; M54.2 Cervicalgia; G89.29 Other chronic pain; N40.0 Benign prostatic hyperplasia without lower urinary tract symptoms; I95.1 Orthostatic hypotension; Z87.891 Personal history of nicotine dependence; Z98.890 Other specified postprocedural states; Z79.82 Long term (current) use of aspirin; Z79.899 Other long term (current) drug therapy
CPT/HCPCS: 36415; 73140-F1; 74176; 80048; 80053; 81001; 83605; 85025; 85027; 86140; 87040; 99285-25; A9270-GY; J2405; J7120; Q9963; U0002

== ENCOUNTER 2022-03-26 08:28 | Day surgery (SDC) | payer BC ==
[2022-03-26] MEDS ORDERED: Propofol 200 MG/20 ML SDV IV ONE (08:29)
[2022-03-26] MEDS ORDERED: Lactated Ringers 1,000 ML IV SCH (08:45)
[2022-03-26] MEDS ORDERED: Sodium Chloride 0.9% 10 ML Syringe FLUSH PRN (08:45)
== END 2022-03-26 11:30 | disposition home or self-care (01) ==
LOC: FB.SDS 08:28
PROVIDERS: ATTEND Surgery
DX: K57.30 Diverticulosis of large intestine without perforation or abscess without bleeding (principal); M19.90 Unspecified osteoarthritis, unspecified site; K21.9 Gastro-esophageal reflux disease without esophagitis; E78.00 Pure hypercholesterolemia, unspecified; I10 Essential (primary) hypertension; E66.9 Obesity, unspecified; Z98.890 Other specified postprocedural states; Z79.899 Other long term (current) drug therapy; Z87.891 Personal history of nicotine dependence; Z68.30 Body mass index [BMI] 30.0-30.9, adult
CPT/HCPCS: 00812-QZ; J2704; J7120